=== PATIENT | female | born 1960 | race Caucasian/White ===

== ENCOUNTER 2022-01-24 13:00 | Outpatient (RCR) | payer BC, SELFPAY | END 2022-10-26 23:59 | disposition home or self-care (01) | PROVIDERS: PCP Surgery; Visit Provider Orthopaedic Surgery Sports Medicine | DX: M25.562 Pain in left knee (principal); Z51.89 Encounter for other specified aftercare | CPT/HCPCS: 97110; 97116; 97140 ==

== ENCOUNTER 2022-10-05 06:00 | Day surgery (SDC) | payer BC, SELFPAY ==
--- OUTSIDE RECORDS SUMMARY | 2022-10-05 06:03 | XMS_ITS | Continuity of Care Document ---
Author Name Unknown Organization [facility] Address [address] [address] [place] [address] Phone Care Team Providers Care Telemarketing Representative Name Role Phone Karo Davis CRNA Unavailable Unavailable Allergies, Adverse Reactions, Alerts Substance Reaction Status Criticality No Known Allergies Active No Inform ation Medications Medication Instructions Dosage Effective Dates (start - stop) Status Comments metronidazole 0.75 % topical cream apply by topical route every day as directed Not Available - Active ibuprofen 400 mg tablet take 1 tablet by oral route every 4 - 6 hours as needed 400 MG - Active Procedures Procedure Date Colonoscopy Flex; W/remov Les- 22 Level Iv-surg Path Gross/micro Advance Directives Directive Yes / No Effective Date File Name No Information Encounters Encounter Description Practice Location Reason(s) For Visit Diagnoses Date Provider Providers Copied on Encounter [facility], [address] [address], [place], [id number], [place] tel:[phone] [facility] No Information 2 Ryan Huddleston. [address] [facility], [place], [id number] , [place]. [phone] Referring Provider: Savanah Pacheco, [address] [facility] [address], [place], [address] . tel:[phone] [facility], [address] [address], [place], [id number], [place] tel:[phone] [facility] GI Symptoms or Concerns (chief complaint) Colorectal polypsDiverticulo sis of colon without diverticulitisEnc ounter for screening for malignant neoplasm of colonPersonal history of colonic polypsBenign neoplasm of transverse colonDvrtclos of lg int w/o perforation or abscess w/o bleedingBenign neoplasm of transverse colon 2 Braden Pavon. [address] [facility], [facility] [address], [place], [place], [id number] , [place]. [phone] Referring Provider: Varghese Barlow, [address] [place], [address]. tel:[phone] [facility], [address] [address], [place], [id number], [place] tel:[phone] [facility] No Information 2 Sabas Gardner. [address] [facility], [facility] [address], [place], [place], [id number] , [place]. [phone] [facility], [address] [address], [place], [id number], [place] tel:[phone] [facility] No Information 0 Sabas Gardner. [address] [facility], [facility] [address], [place], [place], [id number] , [place]. [phone] Family History Family Member Type Diagnosis Age At Onset Son Problem (finding) celiac disease Sister Problem (finding) Colon polyps Son Problem (finding) Irritable bowel syndrom e Father Problem (finding) diverticulitis of colon Mother Problem (finding) cancer of colon Father Problem (finding) malignant neoplasm of l adelia Sister Problem (finding) gallbladder disease Mother Problem (finding) Colon polyps Immunizations Vaccine Date Status Comments SARS-COV-2 (COVID-19) vaccin e, mRNA, spike protein, LNP, preservative free, 100 mcg or 50 mcg dose administered Note: [facility] bi-direct ional interface ; Source: Other Registry Influenza, seasonal, injectable administe red Note: [facility] bi- directional interface ; Source: Other Registry SARS-COV-2 (COVID-19) vaccin e, mRNA, spike protein, LNP, preservative free, 100 mcg or 50 mcg dose administered Note: [facility] bi-direct ional interface ; Source: Other Registry SARS-COV-2 (COVID-19) vaccin e, mRNA, spike protein, LNP, preservative free, 100 mcg or 50 mcg dose administered Note: [facility] bi-direct ional interface ; Source: Other Registry Afluria Qd administered Note: [facility] bi-directional interface ; Source: Other Registry Influenza, injectable, Madin Lety Canine Kidney, preservative free, quadrivalent administered Note: [facility] bi- directional interface ; Source: Other Registry zoster vaccine recombinant administered N ote: [facility] bi-directional interface ; Source: Other Registry Afluria Qd administered Note: [facility] bi-directional interface ; Source: Other Registry Fluzone Quad 6mo or older administered Note: [facility] bi-direct ional interface ; Source: Other Registry Influenza, seasonal, injectable administe red Note: [facility] bi- directional interface ; Source: Other Registry Influenza, seasonal, injecta ble, preservative free administered Note: [facility] bi-direct ional interface ; Source: Other Registry influenza, high dose seasona l, preservative-free administered Note: [facility] bi-direct ional interface ; Source: Other Registry Afluria Qd administered Note: [facility] bi-directional interface ; Source: Other Registry Fluzone Quad 6mo or older administered Note: [facility] bi-direct ional interface ; Source: Other Registry Influenza, seasonal, injecta ble, preservative free administered Note: [facility] bi-direct ional interface ; Source: Other Registry tetanus toxoid, reduced diphtheria toxoid, and acellular pertussis vaccine, adsorbed administered Note: [facility] b i-directional interface ; Source: Other Registry Novel [id number], all formulations administered Note: [facility] bi-direct ional interface ; Source: Other Registry Influenza, seasonal, injectable administe red Note: [facility] bi- directional interface ; Source: Other Registry Influenza, seasonal, injectable administe red Note: [facility] bi- directional interface ; Source: Other Registry Influenza, seasonal, injectable administe red Note: [facility] bi- directional interface ; Source: Other Registry Influenza, seasonal, injectable administe red Note: [facility] bi- directional interface ; Source: Other Registry Influenza, seasonal, injectable administe red Note: [facility] bi- directional interface ; Source: Other Registry tetanus and diphtheria toxoi ds, adsorbed, preservative free, for adult use (2 Lf of tetanus toxoid and 2 Lf of diphtheria toxoid) administered Note: [facility] bi-direct ional interface ; Source: Other Registry Influenza, seasonal, injectable administe red Note: [facility] bi- directional interface ; Source: Other Registry Payers Payer name Insurance type Covered republican ID Authoriza tirosalino(s) [facility] [id number] Social History Type Description Quantity Date Captured Comments Sex Female Smoking Status No Information Chief Complaint And Reason For Visit No Information Reason For Referral Reason For Referral No Information Plan Of Treatment Date Type Action Status No Information History Of Present Illness Encounter Date Complaint History Of Prese nt Illness GI Symptoms or Concerns Functional Status Date Functional Assessmen t No Information Instructions Date Instruction Additional Infor juan a High Fiber Diet Related to Diver ticulosis of colon without diverticulitis Diverticulosis/Diverticulitis Re lated to Diverticulosis of colon without diverticulitis Colon Polyps Related to Diver ticulosis of colon without diverticulitis Assessments Type Assessment Date No Information Patient Care Teams Name Effective Dates (start - stop) Status Members No Information
[2022-10-05] MEDS: LACTATED RINGERS 1000 ML 1,000 ML 100 ML IV (06:15)
[2022-10-05 06:24] VITALS: BMI 49.9
[2022-10-05 06:38] VITALS: BP 150/88; PULSE 62; RESP 18; TEMP 36.7; O2SAT 96
--- NOTE | 2022-10-05 07:18 | W.ANESCHARGE ---
Anesthesia Charges Start Date/Time Anesthesia Start Date: 10/05/22 Anesthesia Start Time: 07:20 Stop Date/Time Anesthesia Stop Date: 10/05/22 Anesthesia Stop Time: 07:50
[2022-10-05] MEDS: LIDOCAINE 1% MDV 20 ML INJECTION (07:32)
[2022-10-05] MEDS: SILVER NITRATE APPLICATOR 1 EACH STICK..EA. TOPICAL (07:37)
[2022-10-05 07:46] VITALS: BP 107/34; PULSE 59; RESP 16; TEMP 36.2; O2SAT 94
--- NOTE | 2022-10-05 07:58 | P.GYNPRC_ITS ---
Procedure Note Time Seen by Provider: 07:00 Date Seen: 10/05/22 Procedure Details: Preop diagnosis: Postmenopausal bleeding, proliferative endometrium Postop diagnosis: Postmenopausal bleeding, proliferative endometrium Name of procedure: Mirena IUD insertion under IV sedation Surgeon: Qing Acuna MD Bilingual Teacher: None Complications: None EBL: 5mL Drains: None Findings: Normal external genitalia, speculum exam, cervix w/o gross lesions or abnormal discharge. Uterine sound 6cm. Bimanual exam performed: No, difficult to assess due to body habitus. A sterile speculum was placed into vagina. Cervix was visualized and cleansed with Betadine. 7 mL of 1% lidocaine was injected into the 4, 8 ,and 12 o?clock position of the cervix. A tenaculum was placed at the anterior lip of cervix. A sound was advanced through the external and internal os until it reached the fundus of the uterus, the depth was 6 cm. The use of os finders or dilators was needed: No. The sound was then withdrawn. The IUD was loaded in a sterile manner and advanced into position. The strings were visualized and cut to appropriate length. Silver nitrate utilized for hemostasis of puncture sites from tenaculum. Hemostasis secured. Complications encountered: None. Patient tolerated the procedure well. Instrument and sponge counts were correct x2. The patient was awakened from MAC anesthesia and taken to the recovery room in a stable condition. The patient will go home after recovering from anesthesia and meeting all the criteria for discharge. She was given instruction regarding follow-up visit in 2 weeks at [facility] and instructions for pain medication.
[2022-10-05 08:00] VITALS: BP 111/64; PULSE 50; RESP 16; O2SAT 94
[2022-10-05 08:15] VITALS: BP 115/66; PULSE 53; RESP 16; O2SAT 96
[2022-10-05 08:27] VITALS: BP 124/72; PULSE 58; RESP 16; O2SAT 94
--- NOTE | 2022-10-05 08:35 | W.ANESCHARGE ---
Anesthesia Charges Start Date/Time Anesthesia Start Date: 10/05/22 Anesthesia Start Time: 07:20 Stop Date/Time Anesthesia Stop Date: 10/05/22 Anesthesia Stop Time: 07:50
== END 2022-10-05 08:47 | disposition home or self-care (01) ==
PROVIDERS: PCP Surgery; Visit Provider Obstetrics & Gynecology
PROC: (CPT 58300; principal; 2022-10-05 07:15)
DX: N95.0 Postmenopausal bleeding (principal); Z30.430 Encounter for insertion of intrauterine contraceptive device
CPT/HCPCS: 58300; 00940; A9270; J1885; J2250; J2704; J3010; J7120; J7298

== ENCOUNTER 2022-10-21 11:26 | Outpatient (CLI) | payer BC, SELFPAY | END 2022-10-21 11:27 | disposition home or self-care (01) | LOC: NFLDREF 10-22 11:12 | PROVIDERS: PCP Surgery; Referring Provider Surgery; Visit Provider Registered Nurse | DX: N39.0 Urinary tract infection, site not specified (principal) | CPT/HCPCS: 87086; 87186 ==

== ENCOUNTER 2023-06-23 13:23 | Outpatient (CLI) | payer BC, SELFPAY | END 2023-06-23 13:24 | disposition home or self-care (01) | LOC: NFLDREF 06-27 07:38 | PROVIDERS: PCP Surgery; Referring Provider Surgery; Visit Provider Nurse Practitioner | DX: N30.01 Acute cystitis with hematuria (principal); B96.20 Unspecified Escherichia coli [E. coli] as the cause of diseases classified elsewhere | CPT/HCPCS: 87086; 87186 ==

== ENCOUNTER 2023-09-23 08:41 | Outpatient (CLI) | payer BC, SELFPAY ==
--- OUTSIDE RECORDS SUMMARY | 2023-09-25 18:20 | XMS_ITS | Encounter Summary ---
Author Organization [facility] Address [address] [place] [address] Care Team Providers Care Traffic Operator Name Role Phone Varghese Posada MD Primary Care Provider [phone] Jeffy Resendiz MD Unavailable [phone] Reason for Referral * Diagnostic Imaging Ultrasound (Routine) - Pending Review Specialty Diagnoses / Procedures Referred By Contac t Referred To Contact Radiology. Diagnoses RUQ abdominal pain Procedures US Abdomen Limited Jeffy Resendiz MD [address] [place] [address] Referral ID Status Reason Start Date Expiration Date V isits Requested Visits Authorized [id number] Pending Review 08/21/2023 08/20/2024 1 1 Reason for Visit * Diagnostic Imaging Ultrasound (Routine) - Pending Review Specialty Diagnoses / Procedures Referred By Contac t Referred To Contact Radiology. Diagnoses RUQ abdominal pain Procedures US Abdomen Limited Jeffy Resendiz MD [address] [place] [address] Referral ID Status Reason Start Date Expiration Date V isits Requested Visits Authorized [id number] Pending Review 08/21/2023 08/20/2024 1 1 Encounter Details Date Type Department Care Team (Latest Contact Info) Description 09/06/2023 9:36 AM CDT - 09/06/2023 11:59 PM CDT Hospital Encounter [facility] [id number] [facility] [address] [place] [address] Jeffy Resendiz MD [address] [facility] [address] [place], [place] [address] RUQ abdominal pain Discharge Disposition: Home or Self Care Social History Tobacco Use Types Packs/Day Years Used Date Smoking Tobacco: Never Passive Smoke Exposure: Never Smokeless Tobacco: Never Alcohol Use Standard Drinks/Week Comments Not Currently 0 (1 standard drink = 0.6 oz pur e alcohol) Adolescent Education Answer Date Record ed Getting School Help Needed Not on file 08/16 Sex and Gender Information Value Date Recorded Sex Assigned at Not on file Gender Identity Not on file Sexual Orientation Not on file Travel History Travel Start Travel End [place] 08/18/2023 09/14/2023 documented as of this encounter Medications at Time of Discharge Medication Sig Dispensed Refills Start Date End Date metFORMIN (GLUCOPHAGE XR) 500 MG 24 hr tablet Take 500 mg by mouth 500 with breakfast and 1000 with dinner 06/20/2023 metroNIDAZOLE (METROCREAM) 0.75 % external cream Apply topically to affected area(s) two times daily. 08/08/2022 Respiratory Therapy Supplies (CARETOUCH 2 CPAP HOSE RAKER BUFFING WHEEL) [facility] CPAP machine for home use at pressure: 10 cmw , Heated humidifier x 1 q 5 yr, Water chamber x 1 q 6 mo, chin strap x 1 q 6 mo, nasal mask x 1 q 3 mo, with nasal cushion x 2 q mo, standard pap tubing x 1 q 3 mo, headgear x 1 q 6 mo, non disposable filter 1 q 6 mo, disposable filter x 2 q mo ??Length of Need: 99 months, Frequency of use: Daily 08/07/2022 Vitamin D, Cholecalciferol, 25 MCG (1000 UT) CAPS documented as of this encounter Plan of Treatment Not on file documented as of this encounter Procedures Procedure Name Priority Date/Time Associated Diagnosis Comments US ABDOMEN LIMITED Routine 09/06/2023 10 :08 AM CDT RUQ abdominal pain documented in this encounter Results * US Abdomen Limited (09/06/2023 10:08 AM CDT) Anatomical Region Laterality Modality Abdomen/Pelvis Ultrasound Impressions 09/06/2023 2:36 PM CDT IMPRESSION: 1. ??Cholelithiasis. Negative sonographic Andrea sign. 2. ??Hepatomegaly. Fatty liver. ADEN WEBB MD Narrative 09/06/2023 2:36 PM CDT ULTRASOUND ABDOMEN LIMITED ??09/06/2023 10:08 AM CLINICAL HISTORY: Rule out gallstones. Right upper quadrant abdominal pain. TECHNIQUE: Limited abdominal ultrasound. COMPARISON: None. FINDINGS: GALLBLADDER: Negative sonographic Andrea sign. Small gallstones. No gallbladder wall thickening. BILE DUCTS: There is no biliary dilatation. The common duct measures 7 mm. LIVER: Fatty liver. Enlarged liver measuring 20.6 cm. No focal lesion. RIGHT KIDNEY: No hydronephrosis. PANCREAS: The visualized portions of the pancreas are normal. No ascites. Procedure Note Aden Webb MD - 09/06/2023 ULTRASOUND ABDOMEN LIMITED 09/06/2023 10:08 AM CLINICAL HISTORY: Rule out gallstones. Right upper quadrant abdominal pain. TECHNIQUE: Limited abdominal ultrasound. COMPARISON: None. FINDINGS: GALLBLADDER: Negative sonographic Andrea sign. Small gallstones. No gallbladder wall thickening. BILE DUCTS: There is no biliary dilatation. The common duct measures 7 mm. LIVER: Fatty liver. Enlarged liver measuring 20.6 cm. No focal lesion. RIGHT KIDNEY: No hydronephrosis. PANCREAS: The visualized portions of the pancreas are normal. No ascites. IMPRESSION: 1. Cholelithiasis. Negative sonographic Andrea sign. 2. Hepatomegaly. Fatty liver. ADEN WEBB MD Jeffy Resendiz MD IMG US ORDERABLES documented in this encounter Visit Diagnoses Diagnosis RUQ abdominal pain Abdominal pain, right upper quadrant documented in this encounter Care Teams Traffic Operator Relationship Specialty Start Date End Date Varghese Posada MD [address] [place] [address] PCP - General 08/16/23 Jeffy Resendiz MD [address] [address] Assigned Surgical Provider 08/30/23 documented as of this encounter
--- OUTSIDE RECORDS SUMMARY | 2023-09-25 18:20 | XMS_ITS | Encounter Summary ---
Author Organization [facility] Address [address] [place] [address] Care Team Providers Care Graining Machine Operator Name Role Phone Varghese Posada MD Primary Care Provider [phone] Jeffy Resendiz MD Unavailable [phone] Encounter Details Date Type Department Care Team (Latest Contact Info) Description 09/06/2023 Travel Social History Tobacco Use Types Packs/Day Years [...] file Travel History Travel Start Travel End [place] 08/18/2023 09/14/2023 documented as of this encounter Plan of Treatment Not on file documented as of this encounter Visit Diagnoses Not on filedocumented in this encounter Care Teams Graining Machine Operator Relationship Specialty Start Date End Date Varghese Posada MD [address] [place] [address] PCP - General 08/16/23 Jeffy Resendiz MD [address] [address] Assigned Surgical Provider 08/30/23 documented as of this encounter
--- OUTSIDE RECORDS SUMMARY | 2023-09-25 18:20 | XMS_ITS | Encounter Summary ---
Author Organization [facility] Address [address] [place] [address] Care Team Providers Care Graduate Assistant Athletic Trainer Name Role Phone Varghese Posaad MD Primary Care Provider Jeffy Resendiz MD Unavailable [phone] Encounter Details Date Type Department Care Team (Late st Contact Info) Description 09/19/2023 MyC Medical Advice [facility] [address] [place] [address] Maia Marshall Social History Tobacco Use Types Packs/Day Years [...] file Travel History Travel Start Travel End [place] 08/18/2023 09/14/2023 documented as of this encounter Plan of Treatment Not on file documented as of this encounter Visit Diagnoses Not on filedocumented in this encounter Care Teams Graduate Assistant Athletic Trainer Relationship Specialty Start Date End Date Varghese Posada MD [address] [place] [address] PCP - General 08/16/23 Jeffy Resendiz MD [address] [place], [place] [address] Assigned Surgical Provider 08/30/23 documented as of this encounter
--- OUTSIDE RECORDS SUMMARY | 2023-09-25 18:20 | XMS_ITS | Data Portability ---
Author Organization [place] [facility] Address [address] [place] [address] Care Team Providers Care Coal Screener Name Role Phone FLAVIOKEON Referring Provider [phone] Assessment No assessment recorded. Plan of Treatment Reminders Order Date Submit Date Provider Last Modified By Organization Details Last Modified Time Details Appointments ESTABLISH ED 20 2023 11:00A Williams Gomez MD Not available Not available Not available Lab urinalysi s, dipstick 2023 024 CECELIA [facility], [address], [place], [address], 07/25/2023 12:49:56 Referral None recorded. Procedures None recorded. Surgeries transuret hral resection of bladder tumor (SURG) 2023 024 [email or web address] Not available 08/09/2023 14:55:24 Imaging None recorded. Medication Orders None recorded. Patient TargetsNo targets recorded. Patient InstructionsNo instructions recorded. Reason for Referral None Reported. Results Created Date Observation Date Name Description Value Unit Range Abnormal Flag LastModifiedBy Organization Detail LastModifiedTime 07/25/19 24 07/25/2023 urina lysis , dipst ick pH-Status 5.0 Not Available [facility] [address], [place], [address], 07/16/2023 13:52:26 07/25/19 24 07/25/2023 urina lysis , dipst ick Blood-Status Trace Not Available [facility] [address], [place], [address], 07/16/2023 13:52:26 07/12/19 24 06/29/2023 CT, abdom en + pelvi s, w/ contr ast No observ ation record ed. Not Available 07/12/2023 12:08:12 Result Notes None recorded. Procedures Surgical History Date Name Laterality Status Provider Name and Address Organization Details Recorded Time 08/07/19 24 TRANSURETHRAL RESECTION OF BLADDER TUMOR (SURG) completed Tesha gleason [facility] 08/09/2023 14:54:43 07/16/19 24 Cystoscopy- female completed Milo Gomez MD [address] [facility] [address] [address], [place], [address], [facility] 07/16/2023 13:50:00 04/09/19 23 intrauterine contraceptive device procedure completed Antonio gleason [facility] 07/16/2023 11:25:07 04/09/19 22 colonoscopy completed Antonio gleason [facility] 07/16/2023 11:25:15 04/09/18 94 Caesarean Section completed Antonio gleason [facility] 07/16/2023 11:24:40 Imaging Results Imaging Date Name Status LastModified by Organiz ation Details LastModified Time 06/29/2023 CT, abdomen + pelvis, w/ contrast completed Information not available 07/12/2023 12:08:12 Procedure Notes None recorded. Medical Equipment None Reported. Allergies No known drug allergies Medications Name Sig Start Date Stop Date Status Note LastModified by Organization Details LastModified Time metformin 500 mg tablet Take 1 tablet twice a day by oral route. active Not Available Not Available No t Available sulfamethoxazole 800 mg-trimethoprim 160 mg tablet active Not Available Not Availabl e Not Available metformin 1,000 mg tablet Take 1 tablet twice a day by oral route. active Not Available Not Available No t Available metronidazole 0.75 % topical cream active Not Available Not Available Not Available ibuprofen 600 mg tablet active Not Available Not Available Not Available metformin ER 500 mg tablet,extended release 24 hr active Not Available Not Availabl e Not Available mirtazapine 7.5 mg tablet active Not Available Not Available No t Available Vitals Date Recorded Body height Body mass index (BMI) Body weight Provider Name and Address Organization Details Last Updated DateTime 07/16/2023 170.18 cm 46 kg/m2 069232.16 g Antonio Snyder [facility] 07/16/2023 11:21:36 Social History Question Answer Notes LastModified by Organizat ion Details LastModified Time Tobacco Smoking Status Never Smoker Antonio gleason [facility] 07/16/2023 11:24:20 What Is Your Level Of Alcohol Consumption? None Information not available 07/16/2023 What Was The Date Of Your Most Recent Tobacco Screening? 07/16/2023 Information not available 07/16/2023 Sex: Female Functional Status None recorded. Mental Status None recorded. Family History Relationship Description Onset Age of this Age Resolved Age Notes Mother Family history of ca ncer of colon 61 65 Father Family history of ne oplasm of lung 78 Sister Family history of Hypertension Notes:Sister dx with myleo d ysplastic syndrome Medical History Condition Response Diabetes Y Bleeding Disorder N High Blood Pressure N Kidney Stones Y High Cholesterol N GERD/Acid Reflux N Cancer N Depression N Gynecological HistoryNo gynecological history recorded. Obstetrics History GPAL:G 0 P 0 0 0 0 Immunizations Vaccine Type Date Status Provider Name and Address Organization Details Recorded Time Influenza, MDCK, quadrivalent, PF 12/27/2021 completed Antonio gleason [facility] 07/16/2023 11:21:40 Influenza, MDCK, quadrivalent, PF 01/12/2023 completed Antonio gleason [facility] 07/16/2023 11:21:40 Influenza, MDCK, quadrivalent, PF 01/16/2019 completed Antonio gleason [facility] 07/16/2023 11:21:40 zoster [facility]18/2018 [facility]23 11:21:40 COVID-19, mRNA, LNP-S, PF, 100 mcg/0.5mL dose or 50 mcg/0.25mL dose 06/21/2020 amado gleason [facility] 07/16/2023 11:21:40 COVID-19, mRNA, LNP-S, PF, 100 mcg/0.5mL dose or 50 mcg/0.25mL dose 07/19/2020 completed Antonio Hanleyb null, [facility] 07/16/2023 11:21:40 COVID-19, mRNA, LNP-S, PF, 100 mcg/0.5mL dose or 50 mcg/0.25mL dose 02/10/2021 [facility] 07/16/2023 11:21:40 COVID-19, mRNA, LNP-S, bivalent, PF, 50 mcg/0.5 mL or 25mcg/0.25 mL dose 12/27/2021 completed [facility] 07/16/2023 11:21:40 RSV, bivalent, protein subunit RSVpreF, diluent reconstituted, 0.5 mL, PF 02/07/2023 [facility] 07/16/2023 11:21:40 COVID-19, mRNA, LNP-S, PF, 50 mcg/0.5 mL 01/12/2023 completed [facility] 07/16/2023 11:21:40 Tdap 08/17/2010 completed [facility] 07/16/2023 11:21:40 Tdap 09/07/2021 [facility] 07/16/2023 11:21:40 Novel Ajuuiicrl-[id number], all formulations 03/19/2009 completed [facility] 07/16/2023 11:21:40 Influenza, high-dose, trivalent, PF 01/27/2015 completed Antonio Claudio null, [facility] 07/16/2023 11:21:40 Influenza, split virus, trivalent, preservative 12/22/2016 completed Antonio Hanleyb null, [facility] 07/16/2023 11:21:40 Influenza, split virus, trivalent, preservative 12/30/2012 completed [facility] 07/16/2023 11:21:40 Influenza, split virus, trivalent, preservative 01/08/2021 completed [facility] 07/16/2023 11:21:40 Influenza, split virus, trivalent, preservative 01/13/2009 completed Antonio Hanleyb null, [facility] 07/16/2023 11:21:40 Influenza, split virus, trivalent, preservative 01/22/2012 completed Antonio Hanleyb null, [facility] 07/16/2023 11:21:40 Influenza, split virus, trivalent, preservative 02/17/2003 completed Antonio Hanleyb null, [facility] 07/16/2023 11:21:40 Influenza, split virus, trivalent, preservative 02/23/2006 completed Antonio Hanleyb null, [facility] 07/16/2023 11:21:40 Influenza, split virus, trivalent, preservative 02/25/2008 completed Antonio Hanleyb null, [facility] 07/16/2023 11:21:40 Influenza, split virus, trivalent, preservative 02/27/2007 completed Antonio Hanleyb null, [facility] 07/16/2023 11:21:40 Influenza, split virus, trivalent, preservative 03/27/2005 completed Antonio Hanleyb null, [facility] 07/16/2023 11:21:40 Influenza, split virus, trivalent, PF 01/26/2011 completed Antonio Hanleyb null, [facility] 07/16/2023 11:21:40 Influenza, split virus, trivalent, PF 02/24/2016 completed Antonio Snyder null, [facility] 07/16/2023 11:21:41 Td (adult), 2 Lf tetanus toxoid, preservative free, adsorbed 11/10/2003 completed Antonio Hanleyb null, [facility] 07/16/2023 11:21:41 Influenza, split virus, quadrivalent, PF 12/16/2019 completed Antonio Hanleyb null, [facility] 07/16/2023 11:21:41 Influenza, split virus, quadrivalent, PF 01/15/2018 completed Antonio Hanleyb null, [facility] 07/16/2023 11:21:41 Influenza, split virus, quadrivalent, PF 01/23/2014 completed Antonio gleason [facility] 07/16/2023 11:21:41 Influenza, split virus, quadrivalent, PF 03/19/2009 completed Antonio gleason [facility] 07/16/2023 11:21:41 Past Encounters Encounter ID Performer Location Encounter Start Date Encounter Closed Date Diagnosis/Indication Diagnosis SNOMED-CT Code [id number] Milo Gomez MD [facility] [address] [place] [address] 07/16/2023 11:09:39 07/17/2023 08:36:49 Neoplasm of urinary bladder [id number] Jon hematuria [id number] 5 Health Concerns Section Related Observation LastModified by Organization Detai ls LastModified Time None Recorded Concern Status LastModified by Organization Details LastModified Time None Recorded Advance Directives Directive None Recorded Payers Encounter Date Sequence Insurance Name Policy Number Policy Jones Covered Member ID Jones Member ID Guarantor Name 07/16/2023 1 [facility] [employer] [id number] Cliff Barriga [id number] Cliff Barriga Notes Date Note Type Note Provider Name and Address Organization Details Recorded Time 07/16/2023 text/html HPI Notes: 62-year-old woman with 3-month history of gross hematuria. Was treated for urinary tract infection and hematuria persisted. Had a CT scan abdomen pelvis with contrast performed in June. I reviewed the films with the patient which shows 2 normal kidneys without stone mass or obstruction. There is a subtle question of mass in the left side of the bladder near the ureterovesical junction. Milo Gomez MD [address] [place] [address],[address], [place], [address], [facility] 07/16/2023 13:53:04 OBGyn Episode No OBEpisode recorded.
--- OUTSIDE RECORDS SUMMARY | 2023-09-25 18:20 | XMS_ITS | Encounter Summary ---
Author Organization [facility] Address [address] [place] [address] Care Team Providers Care Media Sales Executive Name Role Phone Varghese Posada MD Primary Care Provider [phone] Jeffy Resendiz MD Unavailable [phone] Reason for Visit * Reason Comments Consult Gallbladder Encounter Details Date Type Department Care Team (Late st Contact Info) Description 09/18/2023 2:45 PM CDT Office Visit [facility] [place] [address] [place] [address] Jeffy Resendiz MD [address] [facility] [address] [place] [address] Gallstones (Primary Dx) Social History Tobacco Use Types Packs/Day Years Used Date Smoking Tobacco: Never Passive Smoke Exposure: Never Smokeless Tobacco: Never Tobacco Cessation:Counseling Given: Yes Alcohol Use Standard Drinks/Week Comments Not Currently 0 (1 standard drink = 0.6 oz pur e alcohol) Adolescent Education Answer Date Record ed Getting School Help Needed Not on file 08/16 Sex and Gender Information Value Date Recorded Sex Assigned at Not on file Gender Identity Not on file Sexual Orientation Not on file Travel History Travel Start Travel End [place] 08/18/2023 09/14/2023 documented as of this encounter Last Filed Vital Signs Vital Sign Reading Time Taken Comments Blood Pressure 114/72 09/18/2023 2:31 PM CDT Pulse 61 09/18/2023 2:31 PM CDT Temperature - - Respiratory Rate - - Oxygen Saturation 97% 09/18/2023 2:31 PM CDT Inhaled Oxygen Concentration - - Weight 132.5 kg (292 lb) 09/18/2023 2:31 PM CDT Height 172.7 cm (5' 8) 09/18/2023 2:31 PM CDT Body Mass Index 44.4 09/18/2023 2:31 PM CDT documented in this encounter Progress Notes * Jeffy Resendiz MD - 09/18/2023 2:45 PM CDT The patient returns today to discuss her recent gallbladder ultrasound. I spoke to her about these results recently, and she is leaning towards just going ahead with laparoscopic appendectomy. She would, however, like to hear more about the gallbladder surgery before making final decision. Past medical and surgical histories are reviewed. Physical exam: The patient is in no apparent distress. Breathing is nonlabored. Ultrasound is reviewed with the patient. This reveals cholelithiasis, but no evidence of wall thickening or ductal dilatation. Assessment and plan: We discussed laparoscopic cholecystectomy, along with its risks and complications, in detail. We discussed the potential for passing stones from the gallbladder and causing more systemic problems such as jaundice or pancreatitis. At this point, the patient would like to proceedonly with laparoscopic appendectomy. She does understand she may require surgery for her gallbladder at a later date. If she does develop further gallbladder symptoms prior to appendectomy, she should let us know and we can see about adjusting the schedule. A total of 25 minutes was spent today in chart review, patient examination and discussion, and documentation. Jeffy Resendiz MD [facility] documented in this encounter Plan of Treatment Not on file documented as of this encounter Visit Diagnoses Diagnosis Gallstones- Primary Calculus of gallbladder without mention of cholecystitis or obstruction documented in this encounter Care Teams Media Sales Executive Relationship Specialty Start Date End Date Varghese Posada MD [address] [place] [address] PCP - General 08/16/23 Jeffy Resendiz MD [address] [facility] [address] [place] [address] Assigned Surgical Provider 08/30/23 documented as of this encounter
--- OUTSIDE RECORDS SUMMARY | 2023-09-25 18:20 | XMS_ITS | Clinical Summary ---
Author Organization [facility] Address [address] [place] [address] Care Team Providers Care Signal Tower Operator Name Role Phone Varghese Posada MD Primary Care Provider [phone] Jeffy Resendiz MD Unavailable [phone] Allergies No known active allergies Medications Medication Sig Dispensed Refills Start Date End Date Status Respiratory Therapy Supplies (CARETOUCH 2 CPAP HOSE SENIOR HYDROGEOLOGIST) [facility] CPAP machine for home use at pressure: [...] 99 months, Frequency of use: Daily 08/07/2022 Active metroNIDAZOLE (METROCREAM) 0.75 % external cream Apply topically to affected area(s) two times daily. 08/08/2022 Active metFORMIN (GLUCOPHAGE XR) 500 MG 24 hr tablet Take 500 mg by mouth 500 with breakfast and 1000 with dinner 06/20/2023 Active Vitamin D, Cholecalciferol, 25 MCG (1000 UT) CAPS Active Encounters Date Type Department Care Team Description 09/19/2023 [facility] [address], [address] [place] [address] Maia Marshall 09/19/2023 [facility] [address], [address] [place] [address] Maia Marshall 09/19/2023 Telephone [facility] [address] , [address] [place] [phone] Jeffy Resendiz MD Cancelled Surgery 09/18/2023 2:45 PM CDT Office Visit [place] [address] , [address] [place] [phone] Jeffy Resendiz MD Gallstones (Primary Dx) 09/18/2023 Travel 09/13/2023 Prep for Procedure [place] [address] [place] [phone] Jeffy Resendiz MD Disease of appendix (Primary Dx) 09/06/2023 9:36 AM CDT - 09/06/2023 11:59 PM CDT Hospital Encounter [facility] [id number] [place] [phone] Jeffy Resendiz MD RUQ abdominal pain Discharge Disposition: Home or Self Care 09/06/2023 Travel 08/21/2023 1:15 PM CDT Office Visit [place] [address] [place] [phone] Jeffy Resendiz MD RUQ abdominal pain (Primary Dx); Abdominal pain, right lower quadrant 08/21/2023 Travel from Last 3 Months Social History Tobacco Use Types Packs/Day Years [...] file Travel History Travel Start Travel End [place] 08/18/2023 09/14/2023 Last Filed Vital Signs Vital Sign Reading [...] Mass Index 44.4 09/18/2023 2:31 PM CDT Plan of Treatment Health Maintenance Due Date Last Done Comments ADVANCE CARE PLANNING 1962 ANNUAL REVIEW OF HM ORDERS [address] CT COLONOGRAPHY 1962 FIT 1962 FLEX SIG 1962 GLUCOSE 1962 sDNA (Cologuard) 1962 HIV SCREENING 1977 HEPATITIS C SCREENING 1980 LIPID 2002 ZOSTER IMMUNIZATION (2 of 2) 12/13/2018 10/18/2018 RSV VACCINE ( & 60+) (1 - 1-dose 60+ series) 2022 PHQ-2 (once per calendar year) 2023 MAMMO SCREENING 07/17/2024 07/17/2022, 04, 05/20/2019 YEARLY PREVENTIVE VISIT 07/23/2024 07/24/2023, 03/24 PAP 07/11/2025 07/11/2022 COLONOSCOPY 08/04/2031 08/03/2021 COLORECTAL CANCER SCREENING 08/04/2031 DTAP/TDAP/TD IMMUNIZATION (3 - Td or Tdap) 09/08/2031 09/07/2021, 08/17/2010, 11/10/2003 COVID-19 Vaccine Completed 01/12/2023, , 02/10/2021, Additional history exists INFLUENZA VACCINE Completed 01/12/2023, , 01/08/2021, Additional history exists HPV IMMUNIZATION Aged Out No longer e ligible based on patient's age to complete this topic IPV IMMUNIZATION Aged Out No longer e ligible based on patient's age to complete this topic MENINGITIS IMMUNIZATION Aged Out No l onger eligible based on patient's age to complete this topic Pneumococcal Vaccine: Pediatrics (0 to 5 Years) and At-Risk Patients (6 to 64 Years) Aged Out No longer eligible based on patient's age to complete this topic RSV MONOCLONAL ANTIBODY Aged Out No l onger eligible based on patient's age to complete this topic Procedures Procedure Name Priority Date/Time Associated Diagnosis Comments US ABDOMEN LIMITED Routine 09/06/2023 10 :08 AM CDT RUQ abdominal pain LAB RESULT - HIM SCAN Routine 06/29/2023 CT IMAGING - HIM SCAN Routine 06/29/2023 MA SCREENING BILATERAL W/ CONSTANCE Routine 07/17/2022 7:31 AM CDT from Last 3 Months or Most Recently Relevant to Health Maintenance Results * US Abdomen Limited (09/06/2023 10:08 [...] MD Jeffy Resendiz MD IMG US ORDERABLES * Lab Result - HIM Scan (06/29/2023) 06/29/2023 Patient Reported MH NON-BEAKER LAB TE STING * CT Imaging - HIM Scan (06/29/2023) Anatomical Region Laterality Modality Computed Tomogra phy Patient Reported IMG CT ORDERABLES from Last 3 Months or Most Recently Relevant to Health Maintenance Care Teams Signal Tower Operator Relationship Specialty Start Date End Date Varghese Posada MD [address] [place] [address] PCP - General 08/16/23 Jeffy Resendiz MD [address] [facility] [address] [place] [address] Assigned Surgical Provider 08/30/23
--- OUTSIDE RECORDS SUMMARY | 2023-09-25 18:20 | XMS_ITS | Encounter Summary ---
Author Organization [place] Address [address] [place] [address] Care Team Providers Care Sports Recruiter Name Role Phone Varghese Posada MD Primary Care Provider [phone] Reason for Referral * Diagnostic Imaging Ultrasound (Routine) - Pending Review Specialty Diagnoses / Procedures Referred By Susi pelaez Referred To Contact Radiology. Diagnoses RUQ abdominal pain Procedures US Abdomen Limited Jeffy Resendiz MD [address] [place] [address] Referral ID Status Reason Start Date Expiration Date V isits Requested Visits Authorized [id number] Pending Review 08/21/2023 08/20/2024 1 1 Reason for Visit * Reason Comments Consult Appendectomy Encounter Details Date Type Department Care Team (Late st Contact Info) Description 08/21/2023 1:15 PM CDT Office Visit [facility] [place] [address] [place] [address] Jeffy Resendiz MD [address] [place] [address] RUQ abdominal pain (Primary Dx); Abdominal pain, right lower quadrant Social History Tobacco Use Types Packs/Day Years [...] file Travel History Travel Start Travel End [place] 08/18/2023 09/14/2023 documented as of this encounter Last Filed Vital Signs Vital Sign Reading Time Taken Comments Blood Pressure 118/78 08/21/2023 1:27 PM CDT Pulse 58 08/21/2023 1:27 PM CDT Temperature - - Respiratory Rate - - Oxygen Saturation 96% 08/21/2023 1:27 PM CDT Inhaled Oxygen Concentration - - Weight 132.5 kg (292 lb) 08/21/2023 1:27 PM CDT Height 172.7 cm (5' 8) 08/21/2023 1:27 PM CDT Body Mass Index 44.4 08/21/2023 1:27 PM CDT documented in this encounter Patient Instructions * Patient Instructions* Maia Marshall - 08/21/2023 1:15 PM CDT ABDOMINAL ULTRASOUND Date: 09-06-23 Time: 10:10 am Location: [facility] [address] [place] [address] Please check in at 9:55 am Nothing to eat or drink 8 hrs before you exam documented in this encounter Progress Notes * Jeffy Resendiz MD - 08/21/2023 1:15 PM CDT Chief complaint: Abdominal pain, right lower quadrant HPI: This patient is a 62 year old female who presents with several months of right lower quadrant pain.This occasionally is more severe. She recently underwent transurethral resection of a bladder tumor. This was discovered during a workup for hematuria. During that CT scan, the patient was also foundto have a prominent appendix containing multiple appendicoliths. The gallbladder appeared normal onCT, but the patient's last ultrasound was done in 2019. The patient does report having attacks ofright upper quadrant pain occasionally. She is not currently having that pain. The patient denies fever or chills. She denies any association of her symptoms with eating. Past Medical History: Obesity Diabetes Past Surgical History: sections Social History: Social History Socioeconomic History Marital status: Spouse name: Not on file Number of children: Not on file Years of education: Not on file Highest education level: Not on file Occupational History Not on file Tobacco Use Smoking status: Never Passive exposure: Never Smokeless tobacco: Never Substance and Sexual Activity Alcohol use: Not Currently Drug use: Not Currently Sexual activity: Not on file Other Topics Concern Not on file Social History Narrative Not on file Social Determinants of Health Financial Resource Strain: Low Risk (06/29/2023) Received from [facility] Financial Resource Strain Difficulty of Paying Living Expenses: 3 Difficulty of Paying Living Expenses: Not on file Food Insecurity: No Food Insecurity (06/29/2023) Re[facility] from [facility] Food Insecurity Worried About Running Out of Food in the Last Year: 1 Transportation Needs: No Transportation Needs (06/29/2023) Received from [facility] Transportation Needs Lack of Transportation (Medical): 1 Physical Activity: Inactive (10/18/2018) Received from [facility] Exercise Vital Sign Days of Exercise per Week: 0 days Minutes of Exercise per Session: 0 min Stress: No Stress Concern Present (10/18/2018) Received from [facility] [employer] [place] [employer] - Occupational Stress Questionnaire Feeling of Stress : Not at all Social Connections: Socially Integrated (06/29/2023) Received from [facility] Social Connections Frequency of Communication with Friends and Family: 0 Interpersonal Safety: Not At Risk (10/18/2018) Received from [facility] Humiliation, Afraid, Rape, and Kick questionnaire Fear of Current or Ex-Partner: No Emotionally Abused: No Physically Abused: No Sexually Abused: No Housing Stability: Low Risk (06/29/2023) Received from [facility] Housing Stability Unable to Pay for Housing in the Last Year: 1 Review of Systems: The 10 point Review of Systems is negative other than noted in the HPI and above. Physical Exam: General - This is a well developed, well nourished female in no apparent distress. HEENT - Normocephalic, atraumatic. No scleral icterus. Neck - supple without masses Lungs - clear to ascultation. Heart - Regular rate & rhythm without murmur Abdomen: soft, non-distended with tenderness noted in the right lower quadrant. normal bowel sounds. Extremities - warm without edema Neurologic - nonfocal Relevant labs: White blood cell count 7100, hemoglobin 14.7 Imaging: CT scan shows multiple appendicoliths and a mildly dilated appendix. There is no obvious inflammatory change. The gallbladder shows no calcified stones. Assessment and Plan: This is a patient with right lower quadrant pain and occasional right upper quadrant pain. She doeshave a slightly abnormal appearing appendix and her pain is certainly in the region of the appendix. She also sounds like she has had some attacks of right upper quadrant pain which are certainly suspicious for gallbladder. CT scan certainly is not a definitive test for gallstones, and I would therefore like to order a right upper quadrant ultrasound. I would recommend laparoscopic appendectomy given the patient's ongoing right lower quadrant pain and abnormality of the appendix. If she does have gallstones, my leaning would be to remove her gallbladder at the same surgery. We did discuss appendectomy in detail today, along with its risks and complications. The patient prefers to hold off on discussing laparoscopic cholecystectomy until after the ultrasound. If it does show stones, I willplan to see the patient back to discuss potential surgery. If it does not show stones, we can certainly go ahead and schedule her for laparoscopic appendectomy. A total of 45 minutes was spent today in chart review, patient examination and discussion, and documentation. Jeffy Resendiz MD [facility] Please route or send letter to: Primary Care Provider (PCP) documented in this encounter Plan of Treatment Not on file documented as of this encounter Results * US Abdomen Limited [...] this encounter Visit Diagnoses Diagnosis RUQ abdominal pain- Primary Abdominal pain, right upper quadrant Abdominal pain, right lower quadrant RUQ abdominal pain Abdominal pain, right upper quadrant documented in this encounter Care Teams Sports Recruiter Relationship Specialty Start Date End Date Varghese Posada MD [address] [place] [address] PCP - General 08/16/23 documented as of this encounter
--- OUTSIDE RECORDS SUMMARY | 2023-09-25 18:20 | XMS_ITS | Referral Summary ---
Author Organization [place] Address [address] [place] [address] Care Team Providers Care Rf Manager Name Role Phone Varghese Posada MD Primary Care Provider [phone] Jeffy Resendiz MD Unavailable [phone] Encounters Date Type Department Care Team Description 09/19/2023 MyC Medical Advice [facility] [address] [place] [address] Joanna, Amia 09/19/2023 MyC Medical Advice [facility] [address] [place] [address] [facility], Maia 09/19/2023 Telephone [facility] [address] [place] [phone] Jeffy Resendiz MD Cancelled Surgery 09/18/2023 Travel 09/18/2023 2:45 PM CDT Office Visit [facility] [address] [place] [phone] Jeffy Resendiz MD Gallstones (Primary Dx) 09/13/2023 Prep for Procedure [facility] [address] [place] [phone] Jeffy Resendiz MD Disease of appendix (Primary Dx) 09/06/2023 Travel 09/06/2023 9:36 AM CDT - 09/06/2023 11:59 PM CDT Hospital Encounter [facility] [address] [place] [phone] Jeffy Resendiz MD RUQ abdominal pain Discharge Disposition: Home or Self Care 08/21/2023 Travel 08/21/2023 1:15 PM CDT Office Visit [facility] [place] [address] [place] [phone] Jeffy Resendiz MD RUQ abdominal pain (Primary Dx); Abdominal pain, right lower quadrant from Last 3 Months Allergies No known active allergies Medications Medication Sig Dispensed Refills Start Date End Date Status Respiratory Therapy Supplies (CARETOUCH 2 CPAP HOSE LAYOUT WORKER) [facility] CPAP machine for home use at pressure: [...] Cholecalciferol, 25 MCG (1000 UT) CAPS Active Social History Tobacco Use Types Packs/Day Years [...] file Travel History Travel Start Travel End [place] 08/18/2023 09/14/2023 Last Filed Vital Signs Vital [...] 09/18/2023 2:31 PM CDT Plan of Treatment Not on file Procedures Procedure Name Priority Date/Time Associated Diagnosis [...] Recently Relevant to Health Maintenance Care Teams Rf Manager Relationship Specialty Start Date End Date Varghese Posada MD [address] [place] [address] PCP - General 08/16/23 Jeffy Resendiz MD [address] [facility] [address] [place] [address] Assigned Surgical Provider 08/30/23
--- OUTSIDE RECORDS SUMMARY | 2023-09-25 18:20 | XMS_ITS | Encounter Summary ---
Author Organization [place] Address [address] [place] [address] Care Team Providers Care Maintenance Groundman Name Role Phone Varghese Posada MD Primary Care Provider [phone] Encounter Details Date Type Department Care Team (Latest Contact Info) Description 08/21/2023 Travel Social History Tobacco Use Types Packs/Day [...] file Travel History Travel Start Travel End [place] 08/18/2023 09/14/2023 documented as of this encounter Plan of Treatment Not on file documented as of this encounter Visit Diagnoses Not on filedocumented in this encounter Care Teams Maintenance Groundman Relationship Specialty Start Date End Date Varghese Posada MD [address] [place] [address] PCP - General 08/16/23 documented as of this encounter
--- OUTSIDE RECORDS SUMMARY | 2023-09-25 18:20 | XMS_ITS | Encounter Summary ---
Author Organization [place] Address [address] [place] [address] Care Team Providers Care Historical Archeologist Name Role Phone Varghese Posada MD Primary Care Provider [phone] Jeffy Resendiz MD Unavailable [phone] Encounter Details Date Type Department Care Team (Latest Contact Info) Description 09/18/2023 Travel Social History Tobacco Use Types Packs/Day [...] file Travel History Travel Start Travel End [place] 08/18/2023 09/14/2023 documented as of this encounter Plan of Treatment Not on file documented as of this encounter Visit Diagnoses Not on filedocumented in this encounter Care Teams Historical Archeologist Relationship Specialty Start Date End Date Varghese Posada MD [address] [place] [address] PCP - General 08/16/23 Jeffy Resendiz MD [address] [address] Assigned Surgical Provider 08/30/23 documented as of this encounter
--- OUTSIDE RECORDS SUMMARY | 2023-09-25 18:20 | XMS_ITS | Encounter Summary ---
Author Organization [place] Address [address] [place] [address] Care Team Providers Care Cell Feed Department Supervisor Name Role Phone Varghese Posada MD Primary Care Provider [phone] Jeffy Resendiz MD Unavailable [phone] Encounter Details Date Type Department Care Team (Late st Contact Info) Description 09/13/2023 Prep for Procedure [facility] [place] [address] [place] [address] Jeffy Resendiz MD [address] [facility] [address] [place], [place] [id number] Disease of appendix (Primary Dx) Social History Tobacco Use Types [...] Travel History Travel Start Travel End [place] 08/18/2023 09/14/2023 documented as of this encounter Plan of Treatment Not on file documented as of this encounter Visit Diagnoses Diagnosis Disease of appendix- Primary Other and unspecified diseases of appendix documented in this encounter Care Teams Cell Feed Department Supervisor Relationship Specialty Start Date End Date Varghese Posada MD [address] [place] [address] PCP - General 08/16/23 Jeffy Resendiz MD [address] [facility] [address] [place] [address] Assigned Surgical Provider 08/30/23 documented as of this encounter
--- OUTSIDE RECORDS SUMMARY | 2023-09-25 18:20 | XMS_ITS | Encounter Summary ---
Author Organization [place] Address [address] [place] [address] Care Team Providers Care Electronic Science Teacher Name Role Phone Varghese Posada MD Primary Care Provider [phone] Jeffy Resendiz MD Unavailable [phone] Reason for Visit * Reason Onset Date Comments Cancelled Surgery 09/19/2023 Encounter Details Date Type Department Care Team (Late st Contact Info) Description 09/19/2023 Telephone [facility] [place] [address] [facility] [address] [place] [address] Jeffy Resendiz MD [address] [facility] [place] [address] Cancelled Surgery Social History Tobacco Use Types Packs/Day Years [...] file Travel History Travel Start Travel End [place] 08/18/2023 09/14/2023 documented as of this encounter Miscellaneous Notes * Telephone Encounter - Maia Marshall - 09/19/2023 1:19 PM CDT CANCELED Type of surgery: LAPAROSCOPIC APPENDECTOMY Location of surgery: [facility] Date and time of surgery: 10-01-23, 1:30 PM Surgeon: DR RESENDIZ Pre-Op Appt Date: PATIENT TO SCHEDULE Post-Op Appt Date: NA Packet sent out: Yes Pre-cert/Authorization completed: Not Applicable Date: 09-19-23 LAPAROSCOPIC APPENDECTOMY GENERAL PT INST TO HAVE H&P 60 MINS REQ PA ASSIST DFB ALW documented in this encounter Plan of Treatment Not on file documented as of this encounter Visit Diagnoses Not on filedocumented in this encounter Care Teams Electronic Science Teacher Relationship Specialty Start Date End Date Varghese Posada MD [address] [place] [address] PCP - General 08/16/23 Jeffy Resendiz MD [address] [facility] [address] [place] [address] Assigned Surgical Provider 08/30/23 documented as of this encounter
--- OUTSIDE RECORDS SUMMARY | 2023-09-25 18:20 | XMS_ITS | Continuity of Care Document ---
Author Organization [place] [facility] Address [address] [place] [address] Care Team Providers Care Staff Combat Information Center Officer Name Role Phone FLAVIOKEON STOKES Referring Provider Assessment No assessment recorded. Plan of Treatment Reminders Order Date Submit Date Provider Last Modified By Organization Details Last Modified Time Details Appointments ESTABLISH ED 20 2023 11:00A M Milo Gomez MD Not available Not available Not available Lab urinalysi s, dipstick 2023 024 CECELIA [facility], [address], [place], [address], 07/25/2023 12:49:56 Referral None recorded. Procedures None recorded. Surgeries transuret hral resection of bladder tumor (SURG) 2023 024 [email or web address] Not available 08/09/2023 14:55:24 Imaging None recorded. Medication Orders None recorded. Patient TargetsNo targets recorded. Patient InstructionsNo instructions recorded. Reason for Referral None Reported. Results Created Date Observation Date Name Description Value Unit Range Abnormal Flag LastModifiedBy Organization Detail LastModifiedTime 07/25/1907/25/2023 urina lysis , dipst ick pH-Status 5.0 Not Available [facility] [address], [place], [address], 07/16/2023 13:52:26 07/25/19 24 07/25/2023 urina lysis , dipst ick Blood-Status Trace Not Available [facility] [address], [place], [address], 07/16/2023 13:52:26 07/12/19 24 06/29/2023 CT, abdom en + pelvi s, w/ contr ast No observ ation record ed. [email or web address] Not Available 07/12/2023 12:08:12 Result Notes None recorded. Procedures Surgical History Date Name Laterality Status Provider Name and Address Organization Details Recorded Time 08/07/19 24 TRANSURETHRAL RESECTION OF BLADDER TUMOR (SURG) completed Tesha gleason [facility] 08/09/2023 14:54:43 07/16/19 24 Cystoscopy- female completed Milo Gomez MD [address] [facility],[address], [place], [address], [facility] 07/16/2023 13:50:00 04/09/19 23 intrauterine contraceptive device procedure completed Antonio gleason [facility] 07/16/2023 11:25:07 04/09/19 22 colonoscopy completed Antonio gleason [facility] 07/16/2023 11:25:15 04/09/18 94 Caesarean Section completed Antonio gleason [facility] 07/16/2023 11:24:40 Imaging Results None recorded. Procedure Notes None recorded. Medical Equipment None [...] Updated DateTime 07/16/2023 170.18 cm 46 kg/m2 813546.[address] [facility] 07/16/2023 11:21:36 Social History Question Answer Notes LastModified by Organizat ion Details LastModified Time Tobacco Smoking Status [facility] 11:24:20 What Is Your Level Of [...] MDCK, quadrivalent, PF 12/27/2021 completed Antonio gleason [facility] 07/16/2023 11:21:40 Influenza, MDCK, quadrivalent, PF 01/12/2023 [facility] 11:21:40 Influenza, MDCK, quadrivalent, PF 01/16/2019 completed Antonio gleason [facility] 07/16/2023 11:21:40 zoster recombinant 10/18/2018 [facility] 07/16/2023 11:21:40 COVID-19, mRNA, LNP-S, PF, 100 mcg/0.5mL dose or 50 mcg/0.25mL dose 06/21/2020 amado gleason [facility] 07/16/2023 11:21:40 COVID-19, mRNA, LNP-S, PF, 100 mcg/0.5mL dose or 50 mcg/0.25mL dose 07/19/2020 completed Antonio gleason [facility] 07/16/2023 11:21:40 COVID-19, mRNA, LNP-S, PF, 100 mcg/0.5mL dose or 50 mcg/0.25mL dose 02/10/2021 completed Antonio Claudio null, [facility] 07/16/2023 11:21:40 COVID-19, mRNA, LNP-S, bivalent, PF, 50 mcg/0.5 mL or 25mcg/0.25 mL dose 12/27/2021 completed Antonio Claudio null, [facility] 07/16/2023 11:21:40 RSV, bivalent, protein subunit RSVpreF, diluent reconstituted, 0.5 mL, PF 02/07/2023 completed Antonio Claudio null, [facility] 07/16/2023 11:21:40 COVID-19, mRNA, LNP-S, PF, 50 mcg/0.5 mL 01/12/2023 completed Antonio Hanleyb null, [facility] 07/16/2023 11:21:40 Tdap 08/17/2010 completed Antonio Hanleyb null, [facility] 07/16/2023 11:21:40 Tdap 09/07/2021 completed Antonio Claudio null, [facility] 07/16/2023 11:21:40 Novel [id number], all formulations 03/19/2009 completed Antonio Hanleyb null, [facility] 07/16/2023 11:21:40 Influenza, high-dose, trivalent, PF 01/27/2015 completed Antonio Claudio null, [facility] 07/16/2023 11:21:40 Influenza, split virus, trivalent, preservative 12/22/2016 completed Antonio Claudio null, [facility] 07/16/2023 11:21:40 Influenza, split virus, trivalent, preservative 12/30/2012 completed Antonio Claudio null, [facility] 07/16/2023 11:21:40 Influenza, split virus, trivalent, preservative 01/08/2021 completed Antonio Claudio null, [facility] 07/16/2023 11:21:40 Influenza, split virus, trivalent, preservative 01/13/2009 completed Antonio Claudio null, [facility] 07/16/2023 11:21:40 Influenza, split virus, trivalent, preservative 01/22/2012 completed Antonio Hanleyb null, [facility] 07/16/2023 11:21:40 Influenza, split virus, trivalent, preservative 02/17/2003 completed Antonio Claudio null, [facility] 07/16/2023 11:21:40 Influenza, split virus, trivalent, preservative 02/23/2006 completed Antonio Claudio null, [facility] 07/16/2023 11:21:40 Influenza, split virus, trivalent, preservative 02/25/2008 completed Antonio Claudio null, [facility] 07/16/2023 11:21:40 Influenza, split virus, trivalent, preservative 02/27/2007 completed Antonio Hanleyb null, [facility] 07/16/2023 11:21:40 Influenza, split virus, trivalent, preservative 03/27/2005 completed Antonio Hanleyb null, [facility] 07/16/2023 11:21:40 Influenza, split virus, trivalent, PF 01/26/2011 completed Antonio Claudio null, [facility] 07/16/2023 11:21:40 Influenza, split virus, trivalent, PF 02/24/2016 completed Antonio Hanleyb null, [facility] 07/16/2023 11:21:41 Td (adult), 2 Lf tetanus toxoid, preservative free, adsorbed 11/10/2003 completed Antonio Hanleyb null, [facility] 07/16/2023 11:21:41 Influenza, split virus, quadrivalent, PF 12/16/2019 completed Antonio Claudio null, [facility] 07/16/2023 11:21:41 Influenza, split virus, quadrivalent, PF 01/15/2018 completed Antonio Claudio null, [facility] 07/16/2023 11:21:41 Influenza, split virus, quadrivalent, PF 01/23/2014 completed Antonio Claudio null, [facility] 07/16/2023 11:21:41 Influenza, split virus, quadrivalent, PF 03/19/2009 completed Antonio Claudio null, [facility] 07/16/2023 11:21:41 Past Encounters Encounter ID Performer Location Encounter Start Date Encounter Closed Date Diagnosis/Indication Diagnosis SNOMED-CT Code [id number] Milo Gomez MD [facility] [address] [place] [address] 07/16/2023 11:09:39 07/17/2023 08:36:49 Neoplasm of urinary bladder [id number] Jon hematuria [id number] 5 Health Concerns Section Related Observation LastModified by Organization Detai ls LastModified Time None Recorded Concern Status LastModified by Organization Details LastModified Time None Recorded Payers Encounter Date Sequence Insurance Name Policy Number Policy Jones Covered Member ID Jones Member ID Guarantor Name 07/16/2023 1 [place] [employer] 112 Cliff Barriga [id number] Cliff Barriga Notes Date Note Type Note [...] near the ureterovesical junction. Milo Gomez MD [address] [facility],[address], [place], [address], [facility] 07/16/2023 13:53:04 OBGyn Episode No OBEpisode recorded.
--- OUTSIDE RECORDS SUMMARY | 2023-09-25 18:20 | XMS_ITS | Encounter Summary ---
Author Organization [place] Address [address] [place] [address] Care Team Providers Care Line Supervisor Name Role Phone Varghese Posada MD Primary Care Provider [phone] Jeffy Resendiz MD Unavailable [phone] Encounter Details Date Type Department Care Team (Late st Contact Info) Description 09/19/2023 MyC Medical Advice [facility] [address] [place] [address] Maia Marshall Social History Tobacco [...] file Travel History Travel Start Travel End [place] 08/18/2023 09/14/2023 documented as of this encounter Plan of Treatment Not on file documented as of this encounter Visit Diagnoses Not on filedocumented in this encounter Care Teams Line Supervisor Relationship Specialty Start Date End Date Varghese Posada MD [address] [place] [address] PCP - General 08/16/23 Jeffy Resendiz MD [address] [place], [place] [address] Assigned Surgical Provider 08/30/23 documented as of this encounter
== END 2023-09-23 08:42 | disposition home or self-care (01) ==
LOC: NFLDREF 09-25 18:17
PROVIDERS: PCP Surgery; Referring Provider Surgery; Visit Provider Family Medicine
DX: N30.01 Acute cystitis with hematuria (principal)
CPT/HCPCS: 87086; 87186

== ENCOUNTER 2023-10-22 10:24 | Emergency (ER) | payer BC, SELFPAY ==
[2023-10-22 10:28] VITALS: BP 145/97; PULSE 87; RESP 18; TEMP 36.6; O2SAT 97; BMI 47.0
--- NOTE | 2023-10-22 10:33 | ED_ITS ---
HPI - General Adult General Time Seen by Provider: 10:33 Date Seen: 10/22/23 Chief complaint: Arrhythmia/Palpitations Stated complaint: AFIB Time Seen by Provider: 10/22/23 10:32 Source: patient and RN notes reviewed Mode of arrival: ambulatory Limitations: no limitations History of Present Illness HPI narrative: This 63-year-old female was brought over from [facility] for concern of atrial fibrillation on EKG. She was in the clinic for routine follow-up and an irregular heartbeat was noted. They have an EKG timed 9:23 a.m. that states atrial fibrillation. I can see flutter waves very definitively in V1 on the EKG, do wonder if this is flutter with variable block. Follow-up EKG here is showing flutter with variable block, again rate controlled at 82. She maybe over the last week has been noting a little bit of dyspnea with exertion doing her night walk where there was an incline. She has no problems doing her morning walk. Baseline there is no chest pain, no shortness of breath. She does not drink alcohol. She states she is not treated for hypertension. She does have obstructive sleep apnea. Her primary is Dr. Posada. She is not been known to have arrhythmia before. She does report that she had a bladder cancer resected in July. She is due to have a follow-up cystoscopy for routine monitoring. Related Data Home Medications ?Medication ?Instructions ?Recorded ?Confirmed progesterone micronized 100 mg vaginal 06/23/23 10/22/23 vaginal insert metronidazole 0.75 % topical cream 1 applic topical QDAY 10/22/23 10/22/23 Previous Rx's ?Medication ?Instructions ?Recorded acetaminophen 500 mg tablet 1,000 mg (2 x 500 mg) PO Q6H PRN 08/24/22 Pain #15 tabs ibuprofen 600 mg tablet 600 mg PO Q6H PRN Pain #30 tabs 08/24/22 apixaban 5 mg tablet (Eliquis) 5 mg PO BID #60 tabs 10/22/23 Allergies Allergy/AdvReac Type Severity Reaction Status Date / Time No Known Allergies Allergy Verified 10/22/23 09:09 Review of Systems Status of ROS: Reports: 6 or more systems reviewed and unremarkable except as noted in History and below FORMERLY [facility] PFS Medical History History of endometrial biopsy ?Z92.89 - Personal history of other medical treatment (ICD-10) GERD (gastroesophageal reflux disease) ?K21.9 - Gastro-esophageal reflux disease without esophagitis (ICD-10) Sleep apnea ?G47.30 - Sleep apnea, unspecified (ICD-10) Encounter for screening for severe acute respiratory syndrome coronavirus 2 (SARS-CoV-2) infection ?Z11.52 - Encounter for screening for COVID-19 (ICD-10) Surgical History Hx of section ?Z98.891 - History of uterine scar from previous surgery (ICD-10) History of carpal tunnel release ?Z98.890 - Other specified postprocedural states (ICD-10) History of carpal tunnel release ?Z98.890 - Other specified postprocedural states (ICD-10) H/O left knee surgery ?Z98.890 - Other specified postprocedural states (ICD-10) Family History Mother Colon cancer Father Lung cancer Paternal Grandfather Diabetes Social History Smoking Status: Never smoker Do you use any of these nicotine containing products: None Second hand tobacco smoke exposure: No How often do you have a drink containing alcohol: 2-4 times a month AUDIT-C Alcohol total score: 2 Non-prescribed substance use: denies use Caffeine: Yes (coffee, pop) Are you now , , , , never or living with a partner: Social isolation score (0-1 are the most socially isolated patients): 1 Exam Const: Vital Signs, click to edit/add: Vital Signs - 24 hr 10/22/23 10:28 Temperature 98 F Pulse Rate [Right Pulse Oximeter] 87 Respiratory Rate 18 Blood Pressure [Ri ght Upper Arm] 145/97 H Pulse Oximetry 97 Oxygen Delivery Me thod Room Air This 63-year-old female is alert, interactive, no apparent distress. She is abl e to speak in complete sentences. Sclera clear, face atraumatic, normal conjugate gaze and sclera are clear. Neck is thick, note no masses, no thyromegaly masses or nodules. Lungs are clear, good air entry, no wheezing or crackles. CV initially mostly regular but then did start hearing some mild irregularity to her heart as I listened longer. I do not hear any murmur, there is a normal S1-S2, no S3-S4. Abdomen is obese but soft, nontender. She has thicker lower extremities but no pitting edema. Documenting provider has reviewed patient's vital signs: yes Course Course ED Course: Patient will be on cardiac monitoring, pulse oximetry. Will get basic labs including electrolytes, TSH and troponin. Will also get a portable chest x-ray. She is not showing any appreciable symptoms of congestive heart failure. She has no chest pain with this. She apparently is rate controlled, do not believe she will need any oral medicines for this. Anticoagulation does need to be considered, she is not a candidate for cardioversion at this point as we have no idea when she went into this rhythm. I do feel that we should anticoagulate her in preparation for seeing Cardiology. She may be a candidate for subsequent cardioversion after appropriate period of anticoagulation. I will attempt to contact her primary or the on-call at [facility] to get her scheduled for outpatient echo, ZIO patch and cardiology follow-up. Will plan on anticoagulation with Fercho. Patient will likely discharge to home today. Have discussed atrial fibrillation atrial flutter with the patient. Again, cardioversion is not recommended. We discussed the stroke risk, her chads Vasc is going to be minimal but do think anticoagulation is indicated for potential further outpatient cardioversion. Reevaluation(s) Time of Reevaluation #1: 12:12 Reevaluation #1: Patient was ambulated here in the ER department. At rest she is in the 80s, maximum heart rates that she went to with exertion was 110, was mostly around 100 per nursing staff. Do not feel that rate suppression is necessary for her and actually could maybe be detrimental with making her too bradycardic. Have discussed anticoagulation with her, went over risks and benefits in the rationale for doing this. If she is anticoagulated, by the time Cardiology sees her and if they would decide to do a cardioversion, she has not lost time. Consultations Consultation #1: Have spoken with Dr. Hoffert her primary provider at [facility]. We reviewed that she is in atrial flutter. We will initiate Eliquis 5 mg twice a day for anticoagulation with the thought that she will perhaps have cardioversion. If she notes hematuria, this decision may need to be reversed. He will get her in for follow-up appointment within the next week, will put referrals in for echo, ZIO patch and Cardiology. We discussed that she seems to be rate controlled at this time, will not put her on any rate controlling medicine, ZIO patch will also help identify if she should need anything outpatient. Time: 10:51 Vital Signs Vital signs: Initial Vital Signs Temperature 98 F 10/22/23 10:28 Temperature Source Temporal Artery Scan 10/22/23 10:28 Pulse Rate 87 10/22/23 10:28 Pulse Rhythm Regular 10/22/23 10:28 Pulse Strength 3+ Normal 10/22/23 10:28 Respiratory Rate 18 10/22/23 10:28 Blood Pressure 145/97 H 10/22/23 10:28 Blood Pressure Mean 113 H 10/22/23 10:28 Blood Pressure Position High-Fowlers 10/22/23 10:28 Pulse Oximetry 97 10/22/23 10:28 Oxygen Delivery Method Room Air 10/22/23 10:28 Vital Signs Temperature 98 F 10/22/23 10:28 Pulse Rate 87 10/22/23 10:28 Respiratory Rate 18 10/22/23 10:28 Blood Pressure 145/97 H 10/22/23 10:28 Pulse Oximetry 97 10/22/23 10:28 Oxygen Delivery Method Room Air 10/22/23 10:28 Temperature 98 F 10/22/23 10:28 Pulse Rate 87 10/22/23 10:28 Respiratory Rate 18 10/22/23 10:28 Blood Pressure 145/97 H 10/22/23 10:28 Pulse Oximetry 97 10/22/23 10:28 Oxygen Delivery Method Room Air 10/22/23 10:28 Medical Decision Making Lab Data Lab results reviewed: Yes I reviewed the patient's lab results Labs: Lab Results 10/22/23 Range/Units 10:54 WBC 7.68 (4.50-11.00) K/uL RBC 4.97 (4.00-5.20) m/uL Hgb 16.1 H (12.0-16.0) gm/dL Hct 47.3 (33.0-51.0) % MCV 95 (80-100) fL MCH 32 (26-34) pg MCHC 34 (32-36) gm/dL RDW Coeff of Elif 13.0 (11.5-15.5) % Plt Count 240 (140-440) K/uL Neut % (Auto) 68.5 (42.0-72.0) % Lymph % (Auto) 21.2 (20-44) % [place] % (Auto) 8.5 (0.0-11.0) % Eos % (Auto) 1.0 (0.0-7.0) % Baso % (Auto) 0.1 (0.0-3.0) % Neut # (Auto) 5.26 (1.7-7.0) K/uL Lymph # (Auto) 1.63 (0.90-2.90) K/uL [place] # (Auto) 0.70 (0.00-0.90) K/UL Eos # (Auto) 0.08 (0.00-0.50) K/uL Baso # (Auto) 0.01 (0.00-0.30) K/uL Abs Immat Gran (auto) 0.05 (0.00-0.30) K/uL Imm/Tot Granulo (auto) 0.7 % Sodium 139 (135-149) mmol/L Potassium 4.4 (3.6-5.1) mmol/L Chloride 109 (96-114) mmol/L Carbon Dioxide 20 (20-32) mmol/L Anion Gap 10 (7-15) mEq/L BUN 14 (7-30) mg/dL Creatinine 0.6 (0.5-1.5) mg/dL Estimated Creat Clear 57.45 Estimated GFR 102 ml/min Glucose 108 (60-115) mg/dL Calcium 10.3 (8.4-10.6) mg/dL Magnesium 1.9 (1.5-2.6) mg/dL Troponin I 0.01 (0.01-0.04) ng/mL NT-Pro-B Natriuret Pep 1060 pg/mL Imaging Data Chest x-ray: Attestation: I have reviewed the pertinent imaging results. My impression: I see no evidence of any congestive heart failure, no pleural effusion, no significant cardiomegaly on my preliminary review. Radiologist's impression: Patient: JENNI MASSEY Facility:?[facility] Patient ID:?[id number] Site Patient ID:?[id number]. Site :?[id number] Study:?XRay-Chest Portable 1 View-10/22/2023 11:03:35 AM Ordering Physician:?Sara Guillen Final Report: Indication AFib Technique One view(s) of the chest Comparison None Findings The cardiomediastinal silhouette and pulmonary vasculature are unremarkable. There is no focal airspace consolidation, pleural effusion, or pneumothorax. No displaced fractures. Impression No acute cardiopulmonary process. Dictated by Jorge Castrejon MD @ 10/22/2023 11:11:12 AM (Electronic Signature) ECG Data Attestation: I personally reviewed and interpreted this ECG as follows: (Atrial flutter with variable AV block, 82 beats per minute. No ischemic change noted.) Prior ECG tracings: available for review (Compared to EKG from clinic.) Discharge Plan Discharge Clinical Impression: Atrial flutter Qualifiers: Atrial flutter type: unspecified Qualified Code(s): I48.92 - Unspecified atrial flutter Patient Disposition: Home, Self-Care Condition: Stable Instructions: Atrial Flutter (ED), Blood Thinners (ED) Additional Instructions: Start Eliquis 5 mg twice daily today, important to take it and not miss doses. Dr. Posada will be working on follow-up appointments for you including having a ZIO patch placed, an outpatient echo done, cardiology follow-up as well as a follow-up appointment with him in the next week or so. If you are developing any chest pain, notice fluid retention or increasing shortness of breath, do recommend re-evaluation in the interim. No ibuprofen, aspirin, no NSAID use while on the Eliquis. Can use Tylenol if needed for pain control. Activity Level: Activity as Tolerated Prescriptions: New Eliquis 5 mg tablet 5 mg PO BID Qty: 60 1RF No Action progesterone micronized 100 mg insert vaginal metronidazole 0.75 % cream 1 applic topical QDAY acetaminophen 500 mg Tablet 1,000 mg PO Q6H PRN (Reason: Pain) Qty: 15 0RF ibuprofen 600 mg Tablet 600 mg PO Q6H PRN (Reason: Pain) Qty: 30 0RF Follow Up/Referrals: Varghese Posada MD [Primary Care Provider] - Stand Alone Forms: [employer] Info Instructions
[2023-10-22 10:43] VITALS: O2SAT 98
--- NOTE | 2023-10-22 10:44 | CRLHL7_ITS ---
For Patients: As a result of the Century Cures Act, medical imaging exams and procedure reports are released immediately into your electronic medical record. You may view this report before your referring provider. If you have questions, please contact your health care provider. Indication AFib Technique One view(s) of the chest Comparison None Findings The cardiomediastinal silhouette and pulmonary vasculature are unremarkable. There is no focal airspace consolidation, pleural effusion, or pneumothorax. No displaced fractures. Impression No acute cardiopulmonary process. Dictated by Jorge Castrejon MD @ 10/22/2023 11:11:12 AM (Electronically Signed)
[2023-10-22 11:08] LABS: Basophils Absolute Auto 0.01 K/uL (0.00-0.30); Basophils Percent Auto 0.1 % (0.0-3.0); Eosinophils Absolute Auto 0.08 K/uL (0.00-0.50); Hematocrit 47.3 % (33.0-51.0); Hemoglobin* 16.1 gm/dL (12.0-16.0); Immature Granulocytes Abs Auto 0.05 K/uL (0.00-0.30); Immature Granulocytes Pct Auto 0.7 %; Lymphocytes Absolute Auto 1.63 K/uL (0.90-2.90); Lymphocytes Percent Auto 21.2 % (20-44); Mean Corpuscular HGB Conc 34 gm/dL (32-36); Mean Corpuscular Hemoglobin 32 pg (26-34); Mean Corpuscular Volume 95 fL (80-100); Monocytes Percent Auto 8.5 % (0.0-11.0); Neutrophils Absolute Auto 5.26 K/uL (1.7-7.0); Neutrophils Percent Auto 68.5 % (42.0-72.0); Platelet Count* 240 K/uL (140-440); Red Blood Count 4.97 m/uL (4.00-5.20); White Blood Count* 7.68 K/uL (4.50-11.00)
[2023-10-22 11:18] LABS: Chloride* 109 mmol/L (96-114); Potassium* 4.4 mmol/L (3.6-5.1); Sodium* 139 mmol/L (135-149)
[2023-10-22 11:21] LABS: Anion Gap 10 mEq/L (7-15); Blood Urea Nitrogen* 14 mg/dL (7-30); Calcium* 10.3 mg/dL (8.4-10.6); Carbon Dioxide* 20 mmol/L (20-32); Creatinine* 0.6 mg/dL (0.5-1.5); Est. Creatinine Clearance* 57.45; Estimated Glomerular Filt Rate 102 ml/min; Glucose* 108 mg/dL (60-115)
[2023-10-22 11:22] LABS: Magnesium* 1.9 mg/dL (1.5-2.6)
[2023-10-22 11:30] LABS: Slide Review Reflex No
[2023-10-22 11:33] LABS: Troponin I* 0.01 ng/mL (0.01-0.04)
[2023-10-22 11:37] LABS: NT Pro B Type NatriureticPept* 1060 pg/mL
== END 2023-10-22 12:29 | disposition home or self-care (01) ==
PROVIDERS: Emergency Provider Family Medicine; PCP Surgery
DX: I48.92 Unspecified atrial flutter (principal)
CPT/HCPCS: 36415; 71045; 80048; 83735; 83880; 84443; 84484; 85025; 93005; 94761; 99284; 99285

== ENCOUNTER 2023-11-05 10:26 | Outpatient (CLI) | payer BC, SELFPAY ==
--- OUTSIDE RECORDS SUMMARY | 2023-11-05 10:28 | XMS_ITS | Referral Summary ---
Author Organization [facility] Address [address] [place] [address] Care Team Providers Care Feeder Switchboard Operator Name Role Phone Varghese Posada MD Primary Care Provider [phone] Jeffy Resendiz MD Unavailable [phone] Encounters Date Type Department Care Team Description 09/19/2023 MyC Medical Advice [facility] [address] [place] [address] Joanna, Maia 09/19/2023 MyC Medical Advice [facility] [address] [place] [address] [facility], Maia 09/19/2023 Telephone [facility] [address] [place] [phone] Jeffy Resendiz MD Cancelled Surgery 09/18/2023 Travel 09/18/2023 2:45 PM CDT Office Visit [facility] [address] [place] [phone] Jeffy Resendiz MD Gallstones (Primary Dx) 09/13/2023 Prep for Procedure [facility] 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/06/2023 Travel 09/06/2023 9:36 AM CDT - 09/06/2023 11:59 PM CDT Hospital Encounter [facility] [address] [facility] [address] [place] [phone] Jeffy Resendiz MD RUQ abdominal pain Discharge Disposition: Home or Self Care 08/21/2023 Travel 08/21/2023 1:15 PM CDT Office Visit [facility] [place] [address] [place] [phone] Jeffy Resendiz MD RUQ abdominal pain (Primary Dx); Abdominal pain, right lower quadrant from Last 3 Months Allergies No known active allergies Medications Medication Sig Dispensed Refills Start Date End Date Status Respiratory Therapy Supplies (CARETOUCH 2 CPAP HOSE WIRE DRAWER) [facility] [place] CPAP machine for home [...] on file Sexual Orientation Not on file Last Filed Vital Signs Vital Sign Reading [...] 10 :08 AM CDT RUQ abdominal pain MA SCREENING BILATERAL W/ CONSTANCE Routine 07/17/2022 [...] MD Jeffy Resendiz MD IMG US ORDERABLES from Last 3 Months or Most Recently Relevant to Health Maintenance Care Teams Feeder Switchboard Operator Relationship Specialty Start Date End Date Varghese Posada MD [address] [place] [address] PCP - General 08/16/23 Jeffy Resendiz MD [address] [facility] [address] [place] [address] Assigned Surgical Provider 08/30/23
--- OUTSIDE RECORDS SUMMARY | 2023-11-05 10:28 | XMS_ITS | Encounter Summary ---
Author Organization [facility] Address [address] [place] [address] Care Team Providers Care Basin Cleaner Name Role Phone Varghese Posada MD Primary Care Provider [phone] Jeffy Resendiz MD Unavailable [phone] Encounter Details Date Type Department Care Team (Late st Contact Info) Description 09/19/2023 MyC Medical Advice [facility] Surgery [facility] [address] [place] [address] Maia Marshall Social History Tobacco [...] on file Sexual Orientation Not on file documented as of this encounter Plan of Treatment Not on file documented as of this encounter Visit Diagnoses Not on filedocumented in this encounter Care Teams Basin Cleaner Relationship Specialty Start Date End Date Varghese Posada MD [address] [place] [address] PCP - General 08/16/23 Jeffy Resendiz MD [address] [place] [address] Assigned Surgical Provider 08/30/23 documented as of this encounter
--- OUTSIDE RECORDS SUMMARY | 2023-11-05 10:28 | XMS_ITS | Encounter Summary ---
Author Organization [facility] Address [address] [place] [address] Care Team Providers Care Finance Lecturer Name Role Phone Varghese Posada MD Primary Care Provider [phone] Jeffy Resendiz MD Unavailable [phone] Reason for Visit * Reason Onset Date Comments Cancelled Surgery 09/19/2023 Encounter Details Date Type Department Care Team (Late st Contact Info) Description 09/19/[address] [facility] [place] [address] [facility] [place] [address] Jeffy Resendiz MD [address] [place] [address] Cancelled Surgery Social History Tobacco [...] on file documented as of this encounter Miscellaneous Notes [...] on filedocumented in this encounter Care Teams Finance Lecturer Relationship Specialty Start Date End Date Varghese Posada MD [address] [place] [address] PCP - General 08/16/23 Jeffy Resendiz MD [address] [facility] [address] [place] [address] Assigned Surgical Provider 08/30/23 documented as of this encounter
--- OUTSIDE RECORDS SUMMARY | 2023-11-05 10:28 | XMS_ITS | Encounter Summary ---
Author Organization [facility] Address [address] [place] [address] Care Team Providers Care Commercial Loan Officer Name Role Phone Varghese Posada MD Primary Care Provider [phone] Jeffy Resendiz MD Unavailable [phone] Reason for Visit * Reason Comments Consult Gallbladder Encounter Details Date Type Department Care Team (Late st Contact Info) Description 09/18/2023 2:45 PM CDT Office Visit [facility] [place] [address] [facility] [place] [address] Jeffy Resendiz MD [address] [facility] [address] [place] [address] Gallstones (Primary Dx) Social History [...] on file documented as of this encounter Last Filed [...] obstruction documented in this encounter Care Teams Commercial Loan Officer Relationship Specialty Start Date End Date Varghese Posada MD [address] [place] [address] PCP - General 08/16/23 Jeffy Resendiz MD Joanne Pacheco [facility] [address] [place] [address] Assigned Surgical Provider 08/30/23 documented as of this encounter
--- OUTSIDE RECORDS SUMMARY | 2023-11-05 10:28 | XMS_ITS | Encounter Summary ---
Author Organization [facility] Address [address] [place] [address] Care Team Providers Care Microscopist Name Role Phone Varghese Posada MD Primary Care Provider [phone] Jeffy Resendiz MD Unavailable [phone] Encounter Details Date Type Department Care Team (Late st Contact Info) Description 09/19/2023 MyC Medical Advice [facility] [address] [place] [address] Maia Marshall Social History Tobacco [...] on filedocumented in this encounter Care Teams Microscopist Relationship Specialty Start Date End Date Varghese Posada MD [address] [place] [address] PCP - General 08/16/23 Jeffy Resendiz MD [address] [place] [address] Assigned Surgical Provider 08/30/23 documented as of this encounter
--- OUTSIDE RECORDS SUMMARY | 2023-11-05 10:28 | XMS_ITS | Encounter Summary ---
Author Organization [facility] Address [address] [place] [address] Care Team Providers Care Sales Promotion Representative Name Role Phone Varghese Posada MD Primary Care Provider [phone] Jeffy Resendiz MD Unavailable [phone] Encounter Details Date Type Department Care Team [...] on filedocumented in this encounter Care Teams Sales Promotion Representative Relationship Specialty Start Date End Date Varghese Posada MD [address] [place] [address] PCP - General 08/16/23 Jeffy Resendiz MD [address] [facility] [address] [place] [address] Assigned Surgical Provider 08/30/23 documented as of this encounter
--- OUTSIDE RECORDS SUMMARY | 2023-11-05 10:28 | XMS_ITS | Encounter Summary ---
Author Organization [facility] Address [address] [place] [address] Care Team Providers Care Internship Name Role Phone Varghese Posada MD Primary Care Provider Jeffy Resendiz MD Unavailable [phone] Encounter Details Date Type Department Care Team (Late st Contact Info) Description 09/13/2023 Prep for Procedure [facility] [place] [address] [place] [address] Jeffy Resendiz MD [address] [facility] [address] [place], [place] [id number] Disease of appendix (Primary Dx) Social History [...] appendix documented in this encounter Care Teams Internship Relationship Specialty Start Date End Date Varghese Posada MD [address] [place] [address] PCP - General 08/16/23 Jeffy Resendiz MD [address] [facility] [address] [place] [address] Assigned Surgical Provider 08/30/23 documented as of this encounter
--- OUTSIDE RECORDS SUMMARY | 2023-11-05 10:28 | XMS_ITS | Clinical Summary ---
Author Organization [facility] Address [address] [place] [address] Care Team Providers Care In Flight Refueling Operator Name Role Phone Varghese Posada MD Primary Care Provider [phone] Jeffy Resendiz MD Unavailable [phone] Allergies No known active allergies Medications Medication Sig Dispensed Refills Start Date End Date Status Respiratory Therapy Supplies (CARETOUCH 2 CPAP HOSE BENCH WORKER) [facility] [place] for [place] use at pressure: [...] Care Team Description 09/19/[address] [facility] [address] [place] [address] Maia Marshall 09/19/[address] [facility] [address] [place] [address] JoannaMaia paerdes 09/19/[address] [facility] [address] [place] [phone] Jeffy Resendiz MD Cancelled Surgery 09/18/2023 2:45 PM CDT Office Visit [place] [address] [place] [phone] Jeffy Resendiz MD Gallstones (Primary Dx) 09/18/2023 Travel 09/13/2023 Prep for Procedure [place] [address] [place] [phone] Jeffy Resendiz MD Disease of appendix (Primary Dx) 09/06/2023 9:36 AM CDT - 09/06/2023 11:59 PM CDT Hospital Encounter [facility] [address] [facility] [address] [place] [phone] Jeffy Resendiz MD RUQ abdominal pain Discharge Disposition: Home or Self Care 09/06/2023 Travel 08/21/2023 1:15 PM CDT Office Visit [place] [address] [place] [phone] Jeffy Resendiz MD RUQ abdominal pain (Primary [...] 2022 PHQ-2 (once per calendar year) 2023 INFLUENZA VACCINE (#1) 2023 , 12/27/2021, 01/08/2021, Additional history exists MAMMO SCREENING 07/17/2024 07/17/2022, 07/08, 05/20/2019 YEARLY PREVENTIVE VISIT 07/23/2024 07/24/2023, 03/24 PAP 07/11/2025 07/11/2022 COLONOSCOPY 08/04/2031 08/03/2021 COLORECTAL CANCER SCREENING 08/04/2031 DTAP/TDAP/TD IMMUNIZATION (3 - Td or Tdap) 09/08/2031 09/07/2021, 08/17/2010, 11/10/2003 COVID-19 Vaccine Completed 01/12/2023, , 02/10/2021, Additional history exists HPV IMMUNIZATION Aged Out [...] Recently Relevant to Health Maintenance Care Teams In Flight Refueling Operator Relationship Specialty Start Date End Date Varghese Posada MD [address] [place] [address] PCP - General 08/16/23 Jeffy Resendiz MD [address] [facility] [address] [place] [address] Assigned Surgical Provider 08/30/23
--- OUTSIDE RECORDS SUMMARY | 2023-11-05 10:29 | XMS_ITS | Encounter Summary ---
Author Organization [facility] Address [address] [place] [address] Care Team Providers Care Sterilization Specialist Name Role Phone Varghese Posada MD Primary Care Provider [phone] Encounter Details Date Type Department Care Team [...] on filedocumented in this encounter Care Teams Sterilization Specialist Relationship Specialty Start Date End Date Varghese Posada MD [address] [place] [address] PCP - General 08/16/23 documented as of this encounter
--- OUTSIDE RECORDS SUMMARY | 2023-11-05 10:29 | XMS_ITS | Encounter Summary ---
Author Organization [facility] Address [address] [place] [address] Care Team Providers Care Airbrush Artist Name Role Phone Varghese Posada MD Primary Care Provider [phone] Jeffy Resendiz MD Unavailable [phone] Reason for Referral * Diagnostic Imaging Ultrasound (Routine) - Pending Review Specialty Diagnoses / Procedures Referred By Contac t Referred To Contact Radiology. Diagnoses RUQ abdominal pain Procedures US Abdomen Limited Jeffy Resendiz MD [address] [place] [id number] Referral ID Status Reason Start Date Expiration Date V isits Requested Visits Authorized [id number] Pending Review 08/21/2023 08/20/2024 1 1 Reason for Visit * Diagnostic Imaging Ultrasound (Routine) - Pending Review Specialty Diagnoses / Procedures Referred By Contac t Referred To Contact Radiology. Diagnoses RUQ abdominal pain Procedures US Abdomen Limited Jeffy Resendiz MD [address] [place] [address] Referral ID Status Reason Start Date Expiration Date V isits Requested Visits Authorized [id number] Pending Review 08/21/2023 08/20/2024 1 1 Encounter Details Date Type Department Care Team (Latest Contact Info) Description 09/06/2023 9:36 AM CDT - 09/06/2023 11:59 PM CDT Hospital Encounter [facility] [id number] [facility] [address] [place] [address] Jeffy Resendiz MD [address] [facility] [address] [place], [place] [address] RUQ abdominal pain Discharge Disposition: Home or [...] on file documented as of this encounter Medications at Time of Discharge Medication Sig Dispensed Refills Start Date End Date metFORMIN (GLUCOPHAGE XR) 500 MG 24 hr tablet Take 500 mg by mouth 500 with breakfast and 1000 with dinner 06/20/2023 metroNIDAZOLE (METROCREAM) 0.75 % external cream Apply topically to affected area(s) two times daily. 08/08/2022 Respiratory Therapy Supplies (CARETOUCH 2 CPAP [employer]) [facility] [place] use at pressure: [...] quadrant documented in this encounter Care Teams Airbrush Artist Relationship Specialty Start Date End Date Varghese Posada MD [address] [place] [address] PCP - General 08/16/23 Jeffy Resendiz MD [address] [facility] [address] [place] [address] Assigned Surgical Provider 08/30/23 documented as of this encounter
--- OUTSIDE RECORDS SUMMARY | 2023-11-05 10:29 | XMS_ITS | Encounter Summary ---
Author Organization [facility] Address [address] [place] [address] Care Team Providers Care Community Health Counselor Name Role Phone Varghese Posada MD Primary Care Provider [phone] Reason for Referral * Diagnostic Imaging Ultrasound (Routine) - Pending Review Specialty Diagnoses / Procedures Referred By Susi pelaez Referred To Contact Radiology. Diagnoses RUQ abdominal pain Procedures US Abdomen Limited Jeffy Resendiz MD [address] [place] [id number] Referral ID Status Reason Start Date Expiration Date V isits Requested Visits Authorized [id number] Pending Review 08/21/2023 08/20/2024 1 1 Reason for Visit * Reason Comments Consult Appendectomy Encounter Details Date Type Department Care Team (Late st Contact Info) Description 08/21/2023 1:15 PM CDT Office Visit [facility] [address] [place] [address] Jeffy Resendiz MD [address] [place] [address] RUQ abdominal pain (Primary Dx); [...] ULTRASOUND Date: 09-06-23 Time: 10:10 am Location: [place] [address] Please check in at 9:55 am Nothing [...] Resource Strain: Low Risk (06/29/2023) Received from [facility] Financial Resource Strain Difficulty of Paying Living Expenses: 3 Difficulty of Paying Living Expenses: Not on file Food Insecurity: No Food Insecurity (06/29/2023) Received from [facility] Food Insecurity Worried About Running Out of Food in the Last Year: 1 Transportation Needs: No Transportation Needs (06/29/2023) Received from [facility] Transportation Needs Lack of Transportation (Medical): 1 Physical Activity: Inactive (10/18/2018) Received from [facility] Exercise Vital Sign Days of Exercise per Week: 0 days Minutes of Exercise per Session: 0 min Stress: No Stress Concern Present (10/18/2018) Received from [facility] [place] [facility] - Occupational Stress Questionnaire Feeling of Stress : Not at all Social Connections: Socially Integrated (06/29/2023) Received from [facility] Social Connections Frequency of Communication with Friends and Family: 0 Interpersonal Safety: Not At Risk (10/18/2018) Received from [facility] Humiliation, Afraid, Rape, and Kick questionnaire Fear of Current or Ex-Partner: No Emotionally Abused: No Physically Abused: No Sexually Abused: No Housing Stability: Low Risk (06/29/2023) Received from [facility] Housing Stability Unable to Pay for [...] quadrant documented in this encounter Care Teams Community Health Counselor Relationship Specialty Start Date End Date Varghese Posada MD [address] [place] [address] PCP - General 08/16/23 documented as of this encounter
--- OUTSIDE RECORDS SUMMARY | 2023-11-05 10:29 | XMS_ITS | Data Portability ---
Author Organization [facility] Address [address] [place] [address] Care Team Providers Care Motion And Time Study Teacher Name Role Phone FLAVIOKEON Referring Provider [phone] Assessment No assessment recorded. Plan of Treatment Reminders Order Date Submit Date Provider Last Modified By Organization Details Last Modified Time Details Appointments ESTABLISH ED 20 2023 11:00A Williams Gomez MD Not available Not available Not available Lab urinalysi s, dipstick 2023 024 [facility], [address], [place], [address], 07/25/2023 12:49:56 Referral None recorded. Procedures None [...] Available [facility] [address], [place], [address], 07/16/2023 13:52:26 07/25/19 24 07/25/2023 urina lysis , dipst ick Blood-Status Trace Not Available [facility] [address], [place], [address], 07/16/2023 13:52:26 07/12/19 24 06/29/2023 CT, abdom en + pelvi s, w/ contr ast No observ ation record ed. Not Available 07/12/2023 12:08:12 Result Notes None recorded. Procedures Surgical History Date Name Laterality Status Provider Name and Address Organization Details Recorded Time 08/07/19 24 TRANSURETHRAL RESECTION OF BLADDER TUMOR (SURG) completed Tesha gleason [facility] 08/09/2023 14:54:43 07/16/19 24 Cystoscopy- female completed Milo Gomez MD [address] [facility],[address], [place], [address], [facility] 07/16/2023 13:50:00 04/09/19 23 intrauterine contraceptive device procedure completed Antonio gleason [facility] 07/16/2023 11:25:07 04/09/19 22 colonoscopy completed Antonio gleason [facility] 07/16/2023 11:25:15 04/09/18 94 Caesarean Section completed Antonio gleason [facility] 07/16/2023 11:24:40 Imaging Results Imaging Date Name [...] Updated DateTime 07/16/2023 170.18 cm 46 kg/m2 217692.16 g Antonio Snyder [facility] 07/16/2023 11:21:36 Social History Question Answer Notes LastModified by Organizat ion Details LastModified Time Tobacco Smoking Status Never Smoker Antonio gleason [facility] 07/16/2023 11:24:20 What Is Your Level Of Alcohol Consumption? None Information not available 07/16/2023 What Was The Date Of Your Most Recent Tobacco Screening? 07/16/2023 Information not available 07/16/2023 Sex: Unknown Functional Status None recorded. Mental Status None recorded. Family History Relationship Description Onset Age of this Age Resolved Age Notes Mother Family history of ca ncer of colon 61 65 Father Family history of ne oplasm of lung 78 Sister Family history of Hypertension Notes:Sister dx with myleo d ysplastic syndrome Medical History Condition Response High Blood Pressure N Kidney Stones Y Depression N Cancer N Bleeding Disorder N GERD/Acid Reflux N High Cholesterol N Diabetes Y Gynecological HistoryNo gynecological history recorded. Obstetrics History GPAL:G 0 P 0 0 0 0 Immunizations Vaccine Type Date Status Provider Name and Address Organization Details Recorded Time Influenza, MDCK, quadrivalent, PF 12/27/2021 completed Antonio gleason [facility] 07/16/2023 11:21:40 Influenza, MDCK, quadrivalent, PF 01/12/2023 completed Antonio gleason [facility] 07/16/2023 11:21:40 Influenza, MDCK, quadrivalent, PF 01/16/2019 completed Antonio gleason [facility] 07/16/2023 11:21:40 zoster [facility] 11:21:40 COVID-19, mRNA, LNP-S, PF, 100 mcg/0.5mL dose or 50 mcg/0.25mL dose 06/21/2020 amado gleason [facility] 07/16/2023 11:21:40 COVID-19, mRNA, LNP-S, PF, 100 mcg/0.5mL dose or 50 mcg/0.25mL dose 07/19/2020 completed Antonio Hanleyb null, [facility] 07/16/2023 11:21:40 COVID-19, mRNA, LNP-S, PF, 100 mcg/0.5mL dose or 50 mcg/0.25mL dose 02/10/2021 [facility] 11:21:40 COVID-19, mRNA, LNP-S, bivalent, PF, 50 mcg/0.5 mL or 25mcg/0.25 mL dose 12/27/2021 completed [facility] 11:21:40 RSV, bivalent, protein subunit RSVpreF, diluent reconstituted, 0.5 mL, PF 02/07/2023 [facility] 11:21:40 COVID-19, mRNA, LNP-S, PF, 50 mcg/0.5 mL 01/12/2023 completed [facility] 11:21:40 Tdap 08/17/2010 [facility] 11:21:40 Tdap 09/07/2021 [facility] 11:21:40 Novel [id number], all formulations 03/19/2009 [facility] 11:21:40 Influenza, high-dose, trivalent, PF 01/27/2015 completed Antonio Claudio null, [facility] 07/16/2023 11:21:40 Influenza, split virus, trivalent, preservative 12/22/2016 completed Antonio Hanleyb null, [facility] 07/16/2023 11:21:40 Influenza, split virus, trivalent, preservative 12/30/2012 [facility] 11:21:40 Influenza, split virus, trivalent, preservative 01/08/2021 [facility] 11:21:40 Influenza, split virus, trivalent, preservative 01/13/2009 completed Antonio Hanleyb null, [facility] 07/16/2023 11:21:40 Influenza, split virus, trivalent, preservative 01/22/2012 completed Antonio Hanleyb null, [facility] 07/16/2023 11:21:40 Influenza, split virus, trivalent, preservative 02/17/2003 completed Antonio Hanleyb null, [facility] 07/16/2023 11:21:40 Influenza, split virus, trivalent, preservative 02/23/2006 completed Antonio Hanleyb null, [facility] 07/16/2023 11:21:40 Influenza, split virus, trivalent, preservative 02/25/2008 completed Antonio Hanleyb null, [facility] 07/16/2023 11:21:40 Influenza, split virus, trivalent, preservative 02/27/2007 completed Antonio Hanleyb null, [facility] 07/16/2023 11:21:40 Influenza, split virus, trivalent, preservative 03/27/2005 completed Antonio Hanleyb null, [facility] 07/16/2023 11:21:40 Influenza, split virus, trivalent, PF 01/26/2011 completed Antonio Hanleyb null, [facility] 07/16/2023 11:21:40 Influenza, split virus, trivalent, PF 02/24/2016 completed Antonio Snyder null, [facility] 07/16/2023 11:21:41 Td (adult), 2 Lf tetanus toxoid, preservative free, adsorbed 11/10/2003 completed Antonio Hanleyb null, [facility] 07/16/2023 11:21:41 Influenza, split virus, quadrivalent, PF 12/16/2019 completed Antonio Hanleyb null, [facility] 07/16/2023 11:21:41 Influenza, split virus, quadrivalent, PF 01/15/2018 completed Antonio Hanleyb null, [facility] 07/16/2023 11:21:41 Influenza, split virus, quadrivalent, PF 01/23/2014 completed Antonio gleason [facility] 07/16/2023 11:21:41 Influenza, split virus, quadrivalent, PF 03/19/2009 completed Antonio gleason [facility] 07/16/2023 11:21:41 Past Encounters Encounter ID Performer Location Encounter Start Date Encounter Closed Date Diagnosis/Indication Diagnosis SNOMED-CT Code [id number] Milo Gomez MD [facility] [address] [place] [id number] 07/16/2023 11:09:39 07/17/2023 08:36:49 Neoplasm of urinary bladder [id number] Jon hematuria [id number] Health Concerns Section Related Observation LastModified by Organization Detai ls LastModified Time None Recorded Concern Status LastModified by Organization Details LastModified Time None Recorded Advance Directives Directive None Recorded Payers Encounter Date Sequence Insurance Name Policy Number Policy Jones Covered Member ID Jones Member ID Guarantor Name 07/16/2023 1 [facility] [employer] [id number] Cliff Barriga [id number] Cliff Barriga Notes Date Note Type Note [...] near the ureterovesical junction. Milo Gomez MD [address] [place] [address],[address], [place], [address], [facility] 07/16/2023 13:53:04 OBGyn Episode No OBEpisode recorded.
--- OUTSIDE RECORDS SUMMARY | 2023-11-05 10:29 | XMS_ITS | Encounter Summary ---
Author Organization [facility] Address [address] [place] [address] Care Team Providers Care Meter Readers Supervisor Name Role Phone Varghese Posada MD Primary Care Provider [phone] Jeffy Resendiz MD Unavailable [phone] Encounter Details Date Type Department Care Team [...] on filedocumented in this encounter Care Teams Meter Readers Supervisor Relationship Specialty Start Date End Date Varghese Posada MD [address] [place] [address] PCP - General 08/16/23 Jeffy Resendiz MD [address] [facility] [address] [place] [address] Assigned Surgical Provider 08/30/23 documented as of this encounter
--- NOTE | 2023-11-05 10:45 | CRLHL7_ITS ---
For Patients: As a result of the Century Cures Act, medical imaging exams and procedure reports are released immediately into your electronic medical record. You may view this report before your referring provider. If you have questions, please contact your health care provider. CLINICAL HISTORY: pelvic pain/ IUD check TECHNIQUE: 2D rtinidad scale and color Doppler images were acquired of the pelvis using a transvaginal approach. FINDINGS: The uterus measures 7.2 x 4.9 x 6.0 cm. No uterine fibroid. The endometrium measures 3 millimeters. Normal position of the IUD within the endometrial canal. The left ovary is not visualized and the right ovary measures 1.7 x 2.8 x 1.6 cm. The right ovary demonstrates normal arterial and venous blood flow on color Doppler analysis. There are no suspicious fluid collections within the cul-de-sac. IMPRESSION: Normal position of the IUD within the endometrial canal. Dictated by Eliceo Cardona MD @ 11/05/2023 11:39:12 AM (Electronically Signed)
== END 2023-11-05 10:27 | disposition home or self-care (01) ==
LOC: US 10:26
PROVIDERS: PCP Surgery; Visit Provider Obstetrics & Gynecology
DX: R10.2 Pelvic and perineal pain (principal); Z30.431 Encounter for routine checking of intrauterine contraceptive device
CPT/HCPCS: 76830